=== PATIENT | male | born 1955 | race Caucasian/White ===

== ENCOUNTER 2018-06-28 10:00 | Outpatient (CLI) | payer BC ==
[~2018-06-28] VITALS: Ht 177.8 cm; Wt 122.7 kg
--- NOTE | ~2018-06-28 | HEMODYNAMI ---
PATIENT:ROBERTA KILGORE JR MEDICAL RECORD: [id number] : 59 LOCATION:D.CAT ADMISSION DATE: 06/28/18 Generatedon:06/28/201812:27 Patient name: ROBERTA KILGORE Patient #: [id number] SSN: DO B: 1955 Date of study: 06/28/2018 Page: Of Hemodynamic Procedure Report Patient Data Patient Demographics Procedure consent was obtained First Name: ROBERTA Gender: Male Last Name: MAGUI Suffix: Patient #: [id number] : 1955 Age: 62 year(s) Accession #: Race: Unknown [id number] Additional ID: [id number] Contact details [address]: [address] [place] [address] [place] State: [place] City: [place] Zip code: [address] Admission Admission Data Admission Date: 06/28/2018 Admission Time: 10:00 Procedure Procedure Types Cath Procedure Diagnostic Procedure Cardioversion External Procedure Description Procedure Date Procedure Date: 06/28/2018 Procedure Start Time: 12:20 Procedure End Time: 12:27 Procedure Staff Name Function Mahesh Brock MD Performing Physician Stuart Mazariegos MD Additional personnel Te Bell RT Monitor Tala Covington RT Monitor Sara Serrano RN Nurse Procedure Data Cath Procedure Fluoroscopy Diagnostic fluoroscopy Total fluoroscopy Time: 0 time: 0 min min Diagnostic fluoroscopy Total fluoroscopy dose: 0 dose: 0 mGy mGy Contrast Material Contrast Material Type Amount (ml) Isovue 300 0 Estimated blood loss: 0 ml Procedure Complications No complications Procedure Medications Medication Administration Route Dosage Oxygen etCO2 Nasal cannula 2 l/min Refer to Anesthesia Notes for Sedation Medications Hemodynamics Rest Heart Rate: 120 (bpm) Snapshots Pre Cath Intra NCS Post Cath Vital Signs Time Heart Resp SPO2 etCO2 NIBP (mmHg) Rhythm Pain Sedation Rate (ipm) (%) (mmHg) Status Level (bpm) 12:09:55 109 14 98 0 128/111(125) A-Fib 0 (11) 10(A) , No pain 12:14:19 98 14 98 0 128/105(125) A-Fib 0 (11) 10(A) , No pain 12:18:41 120 14 98 0 125/98(118) A-Fib 0 (11) 10(A) , No pain 12:22:37 66 15 97 0 105/79(89) NSR 0 (11) 9(A) , No pain 12:26:26 71 12 95 0 118/65(87) NSR 0 (11) 10(A) , No pain Medications Time Medication Route Dose Verified Delivered Reason Notes Effective ness by by 12:18:41 Oxygen etCO2 2 Mahesh Ruiz used for Nasal l/min Delmy Serrano machine quilt stuffer cannula 12:18:45 Refer to Mahesh Ruiz Anesthesia Delmy Serrano RN Notes for Sedation Medications Procedure Log Time Note 11:55:52 Tala Covington RT(R) sent for patient. Start room use. 12:04:11 Time tracking: Regular hours (M-F 7:00 - 5:00) 12:04:15 Plan of Care:Hemodynamics will remain stable., Cardiac rhythm will remain stable., Comfort level will be maintained., Respiratory function will remain adequate., Patient/ family verbilizes understanding of procedure., Procedure tolerated without complication., Recovers from procedure without complications.. 12:04:28 Patient arrived from Pre/Post Procedure Room to [facility]. Patient remains on bed/stretcher for procedure. 12:04:29 Warm blankets applied, and justin hugger turned on for patient comfort. 12:04:30 Correct patient and procedure confirmed by team. 12:04:31 Signed procedure consent form obtained from patient. 12:06:04 ECG and BP/O2 sat monitors applied to patient. 12:08:35 Vital chart was started 12:10:03 Baseline sample Acquired. 12:10:11 Rhythm: atrial fibrillation 12:10:12 Full Disclosure recording started 12:10:23 H&P Date Dictated: 06/15/2018 Within 30 days and on chart., H&P Addendum completed by physician on day of procedure. (MUST COMPLETE FOR ALL OUTPATIENTS). 12:10:23 Pre-procedure instructions explained to patient. 12:10:24 Pre-op teaching completed and patient verbalized understanding. 12:10:26 Family in waiting room. 12:10:27 Patient NPO since Midnight. 12:10:29 Is the patient allergic to Iodine/contrast media? No. 12:10:31 Is patient on blood thinner?Yes 12:10:35 ACC The patient was administered the following blood thiners within the last 24 hours: Xarelto 12:10:37 Patient diabetic? No. 12:10:45 Previous problem with sedation/anesthesia? No ? 12:10:46 Snore? Yes 12:10:47 Sleep apnea? Yes 12:10:48 Deviated septum? No 12:10:49 Opens mouth fully? Yes 12:10:51 Sticks out tongue? Yes 12:10:54 Airway obstruction? No ? 12:10:57 Dentures? No ? 12:11:00 Lab results completed and on chart. 12:11:04 Alarms reviewed by R. N. 12:11:30 Stuart Mazariegos MD present and monitoring patient for TIVA. 12:11:33 Quick combo pads placed on patients chest and back. 12:11:40 Quick Combo opened to sterile field. 12:12:01 IV patent on arrival in left forearm with 0.9% NaCl at KVO. 12:15:22 Physician paged 12:18:40 --------ALL STOP TIME OUT------ 12:18:41 Oxygen 2 l/min etCO2 Nasal cannula was administered by Sara Serrano RN; used for procedure; 12:18:41 Final Timeout: patient, procedure, and site verified with staff and physician. All members of the team are in agreement. 12:18:45 Refer to Anesthesia Notes for Sedation Medications was administered by Sara Serrano RN; ; 12:18:53 Fire Safety Assessment: C--Open oxygen or nitrous oxide is being used. 12:18:57 Physical assessment completed. ASA score P 2 - A patient with mild systemic disease as per Mahesh Brock MD. 12:18:59 Sedation plan: IV Moderate Sedation Medication:Versed, Fentanyl 12:20:05 Procedure started. 12:20:23 Defibrillator synced and charged to 275 Joules. 12:20:24 Shock delivered. 12:20:30 Patient cardioverted to sinus bradycardia. 12:21:00 Procedure ended.(Physican Out) 12:21:04 Fluoroscopy time 00.00 minutes. 12:21:05 Fluoroscopy dose: 0 mGy 12:21:05 Flurop Dose total: 0 12:21:07 Contrast amount:Isovue 300 0ml. 12:21:08 Sharps counted by scrub and verified by R.N. 12:21:15 Post-procedure physical assessment completed. ASA score P 2 - A patient with mild systemic disease as per Mahesh Brock MD. 12:21:18 Post procedure rhythm: sinus rhythm 12:21:23 Estimated blood loss: 0 ml 12:25:03 Post procedure instruction explained to patient.Patient verbalizes understanding. 12:25:04 Patient needs reinforcement of post procedure teaching. 12:25:05 Procedure and supply charges have been captured, reviewed, submitted and are correct. 12:25:08 Procedure Complication : No complications 12:27:03 Vital chart was stopped 12:27:03 See physician's report for complete and final results. 12::05 Report given to Pre/Post Procedure Room. 12:27:08 Patient transfered to Pre/Post Procedure Room with Stretcher. 12:27:10 Procedure ended. 12:27:10 Full Disclosure recording stopped 12:27:16 End room use (Document Last) Device Usage Item Manufacture Quantity Catalog Hospital Part Current Minimal Lot# / Name Number Charge Number Stock Stock Marki al# Code [employer] 1 [id number] Combo Signature Audit [place] Stage Time Signature Unsigned Intra-Procedure 06/28/2018 Te Bell 12:27:43 PM RT(R) Signatures Monitor : Te Bell RT Signature : Date : Time : Monitor : Tala Covington Signature : RT Date : Time : [facility] [address] [facility] [place] [address]
[2018-06-28] MEDS ORDERED: XARELTO10 MG PO (10:16)
[2018-06-28] MEDS ORDERED: PROPAFENONE HC150 MG PO (10:16)
[2018-06-28] MEDS ORDERED: LIPITOR20 MG PO (10:16)
[2018-06-28] MEDS ORDERED: BENICAR40 MG PO (10:16)
[2018-06-28 10:41] VITALS: BP 118/81; Ht 177.8 cm; Wt 122.7 kg
[2018-06-28 10:50] LABS: BASOPHILS 0.8 % (0-2); EOSINOPHILS 2.4 % (0-7); HEMATOCRIT 46.3 % (42.0-54.0); IMMATURE GRANULOCYTES 0.1 % (0-5); MCH 31.1 pg (26.0-34.0); MCHC 34.6 g/dL (31.0-37.0); MCV 89.9 fL (80.0-100.0); MEAN PLATELET VOLUME 9.9 fL (7.4-10.4); MONOCYTES 8.7 % (2-11); PLATELET COUNT 259 10x3/uL (130-400); RBC 5.15 10x6/uL (4.20-6.10); WBC 8.4 10x3/uL (4.8-10.8)
[2018-06-28 11:02] LABS: CALC OSMOLALITY 282 mosm/kg (275-300); CALCIUM 8.5 mg/dL (8.5-10.1); CARBON DIOXIDE 21.5 mmol/L (21.0-32.0); CHLORIDE - SERUM 106 mmol/L (98-107); CREATININE - SERUM 0.9 mg/dL (0.6-1.3); GLUCOSE 140 mg/dL (74-106); POTASSIUM - SERUM 4.2 mmol/L (3.5-5.1); SODIUM 140 mmol/L (136-145); UREA NITROGEN 19 mg/dL (7-18); eGFR NON AFRICAN AMERICAN > 90 mL/min (90-120)
[2018-06-28 11:03] LABS: INR 1.3 (0.85-1.17); PROTIME 15.7 SECONDS (11.6-15.0)
--- NOTE | 2018-06-28 12:30 | NUR ---
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 HR NSR RATE 66, BP 109/60, O2 SAT 98 ON 2L/NC. PT DENIES CHEST PAIN OR NAUSEA. WATER GIVEN PER REQUEST. CALL LIGHT IN REACH AND FAMILY AT BEDSIDE.
--- NOTE | 2018-06-28 12:45 | NUR ---
PT SITTING UP IN BED VISITING W FAMILY, HR REMAINS IN SR RATE OF 64. DENIES PAIN OR NEEDS. CALL LIGHT IN REACH.
--- NOTE | 2018-06-28 13:15 | NUR ---
PT SITTING UP DENIES ANY CHEST DISCOMFORT OR OTHER NEEDS. IV REMOVED AND MONITORS REMOVED FOR DISCHARGE PER Genie YEUNG RN. HR REMAINS IN NSR RATE 62.
--- NOTE | 2018-06-28 13:30 | NUR ---
DISCHARGE INSTRUCTIONS REVIEWED W PT AND , BOTH VERBALIZED UNDERSTANDING. PT DISCHARGED TO PRIVATE VEHICLE VIA WC
--- NOTE | 2018-06-29 11:20 | OP ---
PATIENT NAME: ROBERTA KILGORE JR MEDICAL RECORD: [id number] :59 LOCATION:D.CAT ADMISSION DATE: SURGEON: DANETTE GALEANA MD DATE OF OPERATION: 06/28/2018 PROCEDURE: DC cardioversion. INDICATION: Atrial fibrillation. PROCEDURE IN DETAIL: IV conscious sedation was per anesthesia. Continuous heart rate, O2 saturation, blood pressure monitoring all undertaken, all of which remains stable. He received 1 shock at 275 joules restoring sinus rhythm. OVERALL IMPRESSION: Successful DC cardioversion from atrial fibrillation to sinus rhythm. TRANSINT:[id number] Voice Confirmation ID: [id number] DOCUMENT ID: [id number] DANETTE GALEANA MD at 1120 CC: [id number] DICTATION DATE: 06/28/18 1226 FLOOR SURFACER: 06/28/18 1238 DEP CLI 06/28/[address] [id number]
== END 2018-06-28 13:35 | disposition home or self-care (01) ==
LOC: D.CATH 10:00
PROVIDERS: Internal Medicine Interventional Cardiology
DX: I48.91 Unspecified atrial fibrillation (principal); Z01.812 Encounter for preprocedural laboratory examination

== ENCOUNTER 2019-10-06 14:20 | Inpatient (IN) | payer BC ==
[~2019-10-06] VITALS: Ht 177.8 cm; Wt 122.5 kg
[~2019-10-06 14:20] MED LIST: BENICAR40 MG PO; LIPITOR20 MG PO; PROPAFENONE HC150 MG PO; XARELTO10 MG PO
[2019-10-06] MEDS ORDERED: BAYER CHEWABLE81 MG (14:34)
[2019-10-06] MEDS ORDERED: ELIQUIS5 MG (14:34)
[2019-10-06] MEDS ORDERED: TOPROL XL25 MG (14:35)
[2019-10-06] MEDS ORDERED: CYMBALTA60 MG (14:36)
[2019-10-06] MEDS ORDERED: MULTAQ400 MG (14:36)
[2019-10-06] MEDS ORDERED: CANDESARTAN (14:39)
[2019-10-06 14:44] LABS: BILIRUBIN NEGATIVE (NEGATIVE); GLUCOSE NEGATIVE (NEGATIVE); KETONE NEGATIVE (NEGATIVE); NITRITE NEGATIVE (NEGATIVE); SPECIFIC GRAVITY 1.025 (1.005-1.020); UROBILINOGEN NORMAL (NORMAL)
[2019-10-06 14:46] LABS: BACTERIA FEW /hpf (NEGATIVE); EPITHELIAL CELLS OCC /hpf (0-5); RED CELLS - URINE OCC /hpf (0-5); WHITE CELLS - URINE 0-5 /hpf (NEGATIVE)
[2019-10-06 14:48] LABS: BASOPHILS 0.1 % (0-2); EOSINOPHILS 0.2 % (0-7); HEMATOCRIT 47.9 % (42.0-54.0); HEMOGLOBIN 15.8 g/dL (13.5-17.5); IMMATURE GRANULOCYTES 0.8 % (0-5); LYMPHOCYTES 2.7 % (15-50); MCH 31.2 pg (26.0-34.0); MCV 94.5 fL (80.0-100.0); MEAN PLATELET VOLUME 9.7 fL (7.4-10.4); MONOCYTES 2.8 % (2-11); NEUTROPHILS 93.4 % (40-80); RBC 5.07 10x6/uL (4.20-6.10); RDW 14.3 % (11.5-14.5); WBC 18.3 10x3/uL (4.8-10.8)
[2019-10-06 14:49] LABS: PLATELET COUNT 324 10x3/uL (130-400)
[2019-10-06 15:05] LABS: CALC OSMOLALITY 290 mosm/kg (275-300); CARBON DIOXIDE 22.7 mmol/L (21.0-32.0); CHLORIDE - SERUM 106 mmol/L (98-107); CREATININE - SERUM 1.3 mg/dL (0.6-1.3); GLUCOSE 180 mg/dL (74-106); POTASSIUM - SERUM 4.3 mmol/L (3.5-5.1); SODIUM 141 mmol/L (136-145); UREA NITROGEN 27 mg/dL (7-18); eGFR NON AFRICAN AMERICAN 60 mL/min (90-120)
[2019-10-06 15:14] LABS: ALBUMIN 4.2 g/dL (3.4-5.0); ALKALINE PHOSPHATASE 57 U/L (30-120); ALT (SGPT) 50 U/L (10-68); AMYLASE - SERUM 50 U/L (25-115); BILIRUBIN - TOTAL 1.32 mg/dL (0.2-1.3); LIPASE 92 U/L (73-393); PROTEIN - SERUM 7.5 g/dL (6.4-8.2)
[2019-10-06 15:28] LABS: TROPONIN-I < 0.017 ng/mL (0.000-0.060)
--- NOTE | 2019-10-06 17:41 | NUR ---
DR. AC AT BEDSIDE FOR PATIENT EVAL.
--- NOTE | 2019-10-06 17:58 | NUR ---
EKG COMPLETED AND PLACED ON CHART PER HOSPICE AIDE REQUEST, ALSO BAG OF N/S KVO RATE INFUSING ON TRANSFER TO OR
--- NOTE | 2019-10-06 20:06 | NUR ---
PT ARRIVED FROM PACU IN BED A&OX4 IN STABLE CONDITION. VITAL SIGNS ARE STABLE. BACON CATHETOR OBSERVED BELOW BLADDER AND DRAINING. HE HAS RIGHT HAND IV THAT HAS NO S/S OF INFILTRATION. ABD DRESSINGS ARE CDI C NO S/S OF BLEEDING. 2 ADDY DRAINS NOTED AND DRAINING. WLL PERFORM FULL ASSESSMENT, HX, AND MED RX AND DOCUMENT IN FLOW SHEETS. BED IS LOW,SIDE RAILSX2,CALL LIGHT WITHIN REACH. WILL CONINTUE TO MONITOR
[2019-10-06] MEDS ORDERED: CYMBALTA60 MG PO (20:43)
[2019-10-06 21:11] VITALS: BP 116/73; BMI 38.8
[2019-10-06 22:00] VITALS: BP 116/66
--- NOTE | 2019-10-06 22:14 | NUR ---
PT IS RESTING IN BED WITH EYES CLOSED SNORING. VSS. BED IS LOW,SIDE RAILSX2,CALL LIGHT WIHTIN REACH. WILL CONINTUE TO MONITOR
[2019-10-06 23:00] VITALS: BP 117/63
--- NOTE | 2019-10-06 23:32 | NUR ---
PT IS RESTING IN BED WITH EYES CLOSED SNORING. VSS. BED IS LOW,SIDE RAISLX2,CALL LIGHT WTIHIN REACH. WILL CONITNUE TO MONITOR
[2019-10-07] VITALS (24 sets, daily range): BP systolic 102–149; BP diastolic 44–91
--- NOTE | 2019-10-07 01:27 | NUR ---
PT IS RESTING IN BED AWAKES EASILY. HE VOICES"IM DOING GOOD". VSS. NO REQUEST OR NEEDS AT THIS TIME. BED IS LOW,SIDE RAILSX2,CALL LIGHT WITHIN REACH. WILL CONTINUE TO MONITO R
--- NOTE | 2019-10-07 03:10 | NUR ---
PT IS RESTING IN BED WITH EYES CLOSED. VSS. DOING RE-ASSESSMENT AT THIS TIME. PT PUSHED MILLER HEAD WET PROCESS WHEN I WAS IN ROOM. NO NEEDS OR CONCERNS VOICED. PT HAS LEMON GLYCERIN SWABS AT BEDSIDE TO MOISTEN MOUTH. HE VOICES"ITS BETTER THAN NOTHING". BED IS LOW,SIDE RAISLX2,CALL LIGHT WITHIN REACH. WILL CONITNUE TO MONITOR
[2019-10-07 03:41] LABS: INR 1.38 (0.85-1.17); PROTIME 16.9 SECONDS (11.6-15.0)
[2019-10-07 03:42] LABS: APTT 37.2 SECONDS (22.8-39.4); BASOPHILS 0.1 % (0-2); EOSINOPHILS 0.1 % (0-7); HEMATOCRIT 43.8 % (42.0-54.0); HEMOGLOBIN 14.2 g/dL (13.5-17.5); IMMATURE GRANULOCYTES 0.4 % (0-5); LYMPHOCYTES 5.3 % (15-50); MCH 31.3 pg (26.0-34.0); MCHC 32.4 g/dL (31.0-37.0); MONOCYTES 4.4 % (2-11); NEUTROPHILS 89.7 % (40-80); PLATELET COUNT 300 10x3/uL (130-400); RBC 4.53 10x6/uL (4.20-6.10); RDW 14.6 % (11.5-14.5); WBC 19.6 10x3/uL (4.8-10.8)
[2019-10-07 03:43] LABS: MCV 96.7 fL (80.0-100.0)
[2019-10-07 04:08] LABS: ALBUMIN 3.3 g/dL (3.4-5.0); ALKALINE PHOSPHATASE 44 U/L (30-120); BILIRUBIN - TOTAL 1.19 mg/dL (0.2-1.3); CALC OSMOLALITY 286 mosm/kg (275-300); CALCIUM 7.7 mg/dL (8.5-10.1); CARBON DIOXIDE 23.7 mmol/L (21.0-32.0); CHLORIDE - SERUM 109 mmol/L (98-107); CKMB 0.6 U/L (0.0-3.6); CREATINE KINASE 51 UL (21-232); CREATININE - SERUM 1.1 mg/dL (0.6-1.3); GLUCOSE 141 mg/dL (74-106); MAGNESIUM - SERUM 1.6 mg/dL (1.8-2.4); PHOSPHOROUS 3.4 mg/dL (2.5-4.9); POTASSIUM - SERUM 4.6 mmol/L (3.5-5.1); PROTEIN - SERUM 6.5 g/dL (6.4-8.2); SODIUM 141 mmol/L (136-145); UREA NITROGEN 25 mg/dL (7-18); eGFR NON AFRICAN AMERICAN 72 mL/min (90-120)
[2019-10-07 04:12] LABS: ALT (SGPT) 30 U/L (10-68); TROPONIN-I < 0.017 ng/mL (0.000-0.060)
--- NOTE | 2019-10-07 06:00 | NUR ---
PT IS RESTING IN BED WITH EYES CLOSED SNORING. VSS. BED IS LOW,SIDE RAILSX2,CALL LIGHT WITHIN REACH. WILL CONINTUE TO [facility]
--- NOTE | 2019-10-07 08:00 | NUR ---
AWAKE AND ALERT SKIN WARM AND DRY. AT BEDSIDE. DENIES PAIN STATES DILAUDID COAL PIPELINE OPERATOR EFFECTIVE. ABD DRESSINGS DRY AND INTACT. ADDY DRAINS X 2 BULB COMPRESSED WITH SERSANG DRAINAGE. BACON CATH PATENT DRAINING CLEAR JEF URINE. IV RIGHT HAND INFUSING WITH NS AT 125 ML HOUR. NO SWELLING OR REDNESS NOTED. MONITOR SR. INCENTIVE SPIROMETRY INSTRUCTIONS GIVEN WITH RETURN DEMONSTRATION TO 3500 ML. NO DISTRESS. SPLINTING ABD WITH PILLOW WITH DEEP BREATHS.
--- NOTE | 2019-10-07 10:00 | NUR ---
ORAL CARE DONE. COMPLETE BED BATH WITH HIBCLENS GIVEN. PATIENT TURNING SELF FROM SIDE TO SIDE. ABD DRESSING DRY AND INTACT. ADDY DRAINS WITH SERSANG DRAINAGE SMALL AMOUNT. MONITOR SR. DENIES PAIN. SCD ON LOWER LEGS.
--- NOTE | 2019-10-07 12:00 | NUR ---
NO CHANGE DRESSING DRY AND INTACT. ADDY DRAINS INTACT WITH BULB COMPRESSED. STATES HE IS TURNING SELF FROM SIDE TO SIDE. NO DISTRESS
--- NOTE | 2019-10-07 14:00 | NUR ---
NO CHANGE. ENCOURAGE TO USE INCENTIVE SPIROMETRY. ABD DRESSING DRY AND INTACT. CLOUDY YELLOW DRAINAGE IN ADDY DRAINS. MONITOR SR
--- NOTE | 2019-10-07 15:30 | NUR ---
DR. AC HERE TALKED WITH PATIENT. ORDERS TO GET PATIENT OUT OF BED. AND PATIENT MAY HAVE ICE CHIPS ONLY. ABD DRESSING DRY AND INTACT
--- NOTE | 2019-10-07 16:15 | NUR ---
UP IN CHAIR AT BEDSIDE. TOLERATED WELL. ICE CHIPS PROVIDED. PATIENT WITH GOOD GAIT. DENIES ANY DIZZYNESS OR LIGHT HEADED. TOLERATED WELL.
--- NOTE | 2019-10-07 18:00 | NUR ---
TOLERATING UP IN CHAIR WELL. AT BEDSIDE. ANNUAL GREENHOUSE MANAGER DILAUDID EFFECTIVE WITH PAIN RELIEF
--- NOTE | 2019-10-07 19:00 | NUR ---
PT IS SITTING UP IN BED A&OX4, VSS. BACON CATHETOR OBSERVED AND DRAINING. DURING FULL-ASSESSMNET HE HAD SMALL AMOUNT OF SEROSANGANOUS FLUID ON ADDY DRESSING. CHANGED AT THIS TIME. SITE LOOK FREE OF INFECTION OR BLEEDING. HE CAN NOW HAVE ICE CHIPS PER DR AND HAS AT BEDSIDE. BED IS LOW,SIDE RAILSX2,CALL LIGHT WITHIN REACH. WILL CONINUE TO MONITOR
--- NOTE | 2019-10-07 20:28 | NUR ---
STAND BY ASSIST PT TO BEDSIDE CAMMODE. HE VOICED"I THOUGH I MIGHT NEED TO GO" BUT HE ONLY PASSED GAS BY BURPING. BACK TO BED SAFELY. VSS. HE USES MOTION PICTURE CRITIC BUTTON HIMSELF. IS AT BEDSIDE VISITING. NO NEEDS OR CONCERNS VOICED. BED IS LOW,SIDE RAISLX2,CALL LIGHT WITHIN REACH. WILL CONITNUE TO MONITOR
--- NOTE | 2019-10-07 23:32 | NUR ---
PT IS RESTING IN BED. HE IS BURPING UP AIR. VSS. NO COMPLAINTS OR NEEDS VOICED. BED IS LOW,SIDE RAISLX2,ALL LIGHT WITHIN REACH. WILL CONINTUE TO MONITOR
[2019-10-08] VITALS (22 sets, daily range): BP systolic 137–173; BP diastolic 33–98
--- NOTE | 2019-10-08 00:40 | NUR ---
HEARD PT MAKING SOUNDS FROM ROOM. WHEN CHECKING ON HIM HE WAS VOMITING AND MAKING RETCHING SOUNDS. VOMIT WAS SMALL AMOUNT DARK AND THICK. VSS. SCANNED AND ADMINISTERED ZOFRAN 4MG IV FOR N/V ORDERE PRN. WITHIN A FEW MINUTES PT VOICED"I FEEL BETTER NOW". I ENCOURAGED HIM TO NOT TAKE ANY ICE CHIPS FOR ABOUT 4 HOURS TO LET HIS STOMACH SETTLE AND WHEN WE STARTS BACK TO START SLOW. HE VOCALIZED UNDERSTANDING. BED LOW,SIDE RAISLX2,CALL LIGHT WITHNI REACH. WILL CONITNUE TO MONITOR
--- NOTE | 2019-10-08 02:45 | NUR ---
HEARD PT FROM ROOM. HE IS ONCE AGAIN VOMITING A SMALL AMOUNT OF DARK BROWN VOMIT. PROVIDED WITH COOL RAG. HIS VS ARE STABLE. TEMP98.1F. BS HYPOACTIVE X4, BELLY IS STILL DISTENDED AND TIGHT, WHICH IS NO CHANGE FROM PREVIOUS ASSESSMENT. I ONCE AGAIN INSISTED TO NOT TAKE IN ANY ICE CHIPS, WHICH HE VOICED"I HAVNT, AND OK". HE SEEMS TO FEEL BETTER AFTER VOMMITING AND DOES NOT CONTINUE TO RETCH. I WILL CONITNUE TO MONITOR THIS
--- NOTE | 2019-10-08 03:00 | NUR ---
TALKED WITH ON THE PHONE TO UPDATE ABOUT PT N/V. GAVE T.O TO START ZOFRAN DRIP AND TO DROP A NG TUBE AND PUT ON LOW-INTERMITTEN SUCTION AND TO BE STRICK NPO, NO ICE CHIPS. T.O READ BACK CORRECT.
[2019-10-08 03:46] LABS: BASOPHILS 0.1 % (0-2); EOSINOPHILS 0.1 % (0-7); HEMATOCRIT 43.8 % (42.0-54.0); HEMOGLOBIN 13.9 g/dL (13.5-17.5); IMMATURE GRANULOCYTES 0.6 % (0-5); LYMPHOCYTES 4.3 % (15-50); MCHC 31.7 g/dL (31.0-37.0); MCV 97.8 fL (80.0-100.0); MEAN PLATELET VOLUME 9.9 fL (7.4-10.4); MONOCYTES 3.6 % (2-11); NEUTROPHILS 91.3 % (40-80); PLATELET COUNT 285 10x3/uL (130-400); RBC 4.48 10x6/uL (4.20-6.10); WBC 16.2 10x3/uL (4.8-10.8)
--- NOTE | 2019-10-08 03:49 | NUR ---
JUST PLACED NG TUBE DOWN RIGHT NARE AND INSERTED 20ML OF AIR AND HEARD OVER GASTRIC REGION. PT TOLERATED WELL. SECURED TO NOSE AND HOOKED UP TO LOW-INTERMITTEN SUCTION. GREENISH BROWN EMESIS IS COMIGN OUT OF TUBE. VSS. PT PUSHED IT RISK AND ASSURANCE SENIOR MANAGER BUTTON. BED IS LOW,SIDE RAISLX2,CALL LIGHT WITHIN REACH. WILL CONITNUE TO MONTIOR
[2019-10-08 03:59] LABS: ALBUMIN 3.2 g/dL (3.4-5.0); ALKALINE PHOSPHATASE 54 U/L (30-120); ALT (SGPT) 27 U/L (10-68); BILIRUBIN - TOTAL 0.82 mg/dL (0.2-1.3); CALC OSMOLALITY 283 mosm/kg (275-300); CALCIUM 8.2 mg/dL (8.5-10.1); CHLORIDE - SERUM 108 mmol/L (98-107); GLUCOSE 160 mg/dL (74-106); POTASSIUM - SERUM 4.4 mmol/L (3.5-5.1); PROTEIN - SERUM 7.4 g/dL (6.4-8.2); SODIUM 140 mmol/L (136-145); eGFR NON AFRICAN AMERICAN 81 mL/min (90-120)
[2019-10-08 04:01] LABS: PHOSPHOROUS 2.1 mg/dL (2.5-4.9); UREA NITROGEN 18 mg/dL (7-18)
--- NOTE | 2019-10-08 05:38 | NUR ---
PT IS RESTING IN BED WITH EYES CLOSED SNORING. VSS. BED IS LOW,SIDE RAISLX2,[facility]. WILL CONITNUE TO [facility]
--- NOTE | 2019-10-08 10:22 | NUR ---
0700 BEDSIDE REPORT IN BED AWAKE ASSESSMENT COMPLETE
--- NOTE | 2019-10-08 10:23 | NUR ---
0900 RIGHT NARE NGT PLACEMENT VERIFIED WITH AIR BOLUS AND LOW INTERMITTANT WALL SUCTION THIN DARK LIQUID UPON RETURN PATIENT ON ZOFRAN INFUSION FOR NAUSEA
--- NOTE | 2019-10-08 10:36 | NUR ---
0901 PHARMACY ARRIVED WITH SODIUM PHOSPHATE 15 MM FOR SERUM P04 OF 2.1
--- NOTE | 2019-10-08 10:55 | NUR ---
1000 DR HODGE LETTERPRESS SETTER IN IRRIGATION EQUIPMENT INSTALLER AT THIS TIME WILL ROUND IN ICU AFTERWARDS
--- NOTE | 2019-10-08 11:07 | NUR ---
1420 DR HODGE AT BEDSIDE. WENT TO GET TO SPEAK WITH CARDIOLOGY. DR PIEDRA UPDATED ON PATIENT AND ALLOWED HER TO ASK QUESTIONS STARTED AMIODARONE GTT
--- NOTE | 2019-10-08 11:10 | NUR ---
4157 STATED SHE HAD CALLED PATIENTS DIESEL DINKEY ENGINEER IN [place] [facility]ING [facility]
--- NOTE | 2019-10-08 11:11 | NUR ---
1100 RESTING QUIETLY WITH EYES CLOSED STATED HE HAS SMALL HEADACHE COOL WET CLOOTHS PLACED OVER HIS FORHEAD PT STATED THAT 'FEELS GOOD'
--- NOTE | 2019-10-08 11:53 | NUR ---
1153 RIGHT ADDY INSERTION SITE LEAKING SEROUS FLUID REINFORCED SURGICAL DRESSING WITH 4X4 EARNEST AND MEDIPORE TAPE STRIPPED ADDY TUBING X 2 BOTH DRAINING SEROUS FLUID TO COMPRESSED BULBS
--- NOTE | 2019-10-08 11:57 | NUR ---
1150 PATIENT STATES ALL THE PAIN IS GONE DENIES FLATUS FAINT BOWEL SOUNDS NOTED BOTH LOWER QUADS
--- NOTE | 2019-10-08 12:52 | NUR ---
6578 DR DREW AT BEDSIDE PROVIDING UPDATE TO PATIENT AND MD ALLOWED SPOUSE TO ASK QUESTIONS ALL QUESTIONS WERE ANSWERED BY THE MD
--- NOTE | 2019-10-08 19:05 | NUR ---
PT IS RESTING IN BED WITH EYES CLOSED. AWAKES EASILY AND IS A&OX4. HIS VSS. BACON OBSERVED DRAINING AND SECURED TO LEG. NG TUBE IS HOOK TO LOW-INTERMITTEN SUCTION AND IS PULLING LIGHT SCREEN EMESIS OUT. PT HAS HOUSE FURNISHINGS SUPERVISOR PUMP BY HIS SIDE AND VOICES "IT CONTROLS MY PAIN PRETTY GOOD". HE MOVES HIMSELF INDEPENDENTLY. WILL PERFORM FULL ASSESSMENT AND DOC IN FLOW SHEET. BED IS LOW,SIDE RAISLX,2CALL CALL LIGHT WITHIN REACH. WILL CONITNUE TO MONITO R
--- NOTE | 2019-10-08 20:22 | NUR ---
PT IS RESTING IN BED WITH EYES CLOSED. VSS. AWAKES EAISLY. HE VOICES"NO" TO ANY PAIN RIGHT NOW AND VOICES"I HAVENT HAD TO USE MY BUTTON MUCH". JUST ADMINSITERED SCHEDULED MED. BS IS 125, SO NO COVERAGE NEEDED. NO NEEDS OR CONCERNS VOICED. BED IS LOW,SIDE RAISLX2,CALL LIGHT WITHIN REACH. WILL CONINTUE TO [facility]
--- NOTE | 2019-10-08 22:14 | NUR ---
PT IS RESTING IN BED WITH EYES CLOSED. AUCTIONEER ART PUMP WAS BEEPING THAT IT WAS EMPTY. PUT NEW SYRING IN AUCTIONEER ART AND DOCUMENTED ON MAR AND AUCTIONEER ART FLOWSHEET. PT VOICES NO NEEDS OR CONCERNS. VSS.
--- NOTE | 2019-10-08 23:20 | NUR ---
PT IS RESTING IN BED WITH EYES CLOSED. WILL PERFORM RE-ASSESSMENT AND DOC IN FLOW SHEET. VSS. BED IS LOW,SIDE RAILSX2,CALL LIGHT WITHIN REACH. WILL CONITNUE TO MONITOR
[2019-10-09] VITALS (24 sets, daily range): BP systolic 138–169; BP diastolic 69–120; Ht 177.8 cm; Wt 122.5 kg
--- NOTE | 2019-10-09 02:10 | NUR ---
PT IS RESTING IN BED WITH EYES CLOSED. VSS. BED IS LOW,SIDE RAISLX2,CALL LIGHT WITHIN REACH. WILL CONTINUE TO MONITOR
[2019-10-09 03:47] LABS: BASOPHILS 0.1 % (0-2); EOSINOPHILS 0.2 % (0-7); HEMATOCRIT 44.2 % (42.0-54.0); HEMOGLOBIN 14.3 g/dL (13.5-17.5); IMMATURE GRANULOCYTES 0.3 % (0-5); LYMPHOCYTES 6.3 % (15-50); MCH 31.3 pg (26.0-34.0); MCHC 32.4 g/dL (31.0-37.0); MCV 96.7 fL (80.0-100.0); MEAN PLATELET VOLUME 9.9 fL (7.4-10.4); NEUTROPHILS 88.1 % (40-80); PLATELET COUNT 290 10x3/uL (130-400); RBC 4.57 10x6/uL (4.20-6.10); RDW 14.7 % (11.5-14.5); WBC 15.3 10x3/uL (4.8-10.8)
[2019-10-09 04:03] LABS: ALBUMIN 2.8 g/dL (3.4-5.0); ANION GAP 11.4 mmol/L (8-16); BILIRUBIN - TOTAL 0.68 mg/dL (0.2-1.3); CALCIUM 8.4 mg/dL (8.5-10.1); CARBON DIOXIDE 25.5 mmol/L (21.0-32.0); CREATININE - SERUM 1.1 mg/dL (0.6-1.3); POTASSIUM - SERUM 3.9 mmol/L (3.5-5.1); PROTEIN - SERUM 6.3 g/dL (6.4-8.2)
[2019-10-09 04:04] LABS: PHOSPHOROUS 1.5 mg/dL (2.5-4.9)
--- NOTE | 2019-10-09 04:57 | NUR ---
PT IS RESTING IN BED WITH EYES CLOSED. AWAKES EASILY. VOICES"IM DOING ALRIGHT". NO C/O VOICED. VSS. BED IS LOW, SIDE RAISLX2,CALL LIGHT WITHIN REACH. WILL CONITNUE TO MONITOR
--- NOTE | 2019-10-09 06:00 | NUR ---
JUST ASSITED SETTING UP FOR PT TO BRUSH HIS OWN TEETH AND SUPPLIED HIM WITH A SHOWER SHAMPOO CAP SO HE COULD WASH HIS HAIR. HE ALSO WASHED HIS BODY HIMSELF ONCE I SET UP ALL STUFF ON BEDSIDE TABLE. PT VOICED AFTER"MAN I FEEL SO MUCH BETTER". HE VOICES NO NEEDS AT THIS TIME. VSS. HE REPOSITIONS HIMSELF. BED IS LOW,SIDE RAISLX2,CALL LIGHT WITHIN REACH. WILL CONINTUE TO MONITOR
--- NOTE | 2019-10-09 09:10 | EC ---
PATIENT:ROBERTA KILGORE JR DATE OF SERVICE: 10/06/19 SEX: M MEDICAL RECORD: [id number] DATE OF : [birth year] LOCATION:[place] [address] AGE OF PATIENT: 63 ADMISSION DATE: 10/06/19 REFERRING PHYSICIAN: INTERPRETING PHYSICIAN: KALEE HODGE MD ECHOCARDIOGRAM REPORT ECHO CHARGES 4 ECHO COMPLETE Date: 10/08/19 CLINICAL DIAGNOSIS: ATRIAL FIB ECHOCARDIOGRAPHIC MEASUREMENTS (adult normal given) AC root (d.<3.7cm) 3.3 cm LV Septum d (<1.2 cm> 1.3 cm Valve Excursion 2.0 cm LV Septum (systole) 1.8 cm Left Atria (s.<4.0cm> 4.1 cm LVPW d(<1.2cm) 1.4 cm RV (d.<2.3cm) 4.3 cm LVPW (sytole) 2.0 cm LV diastole(<5.6CM) 5.4 cm MV E-F(>70mm/sec) cm LV systole 3.8 cm LVOT Diameter 2.2 cm MV exc.(>10mm) 1.9 cm Est.ejection fraction (50-75%) % DOPPLER: LVIT cm/sec A 450 cm/sec E 84.0 cm/sec LA cm/sec RVSP 16 mmHg LVOT 109 cm/sec AOP1/2T m/s Asc. Ao 129 cm/sec RVOT 80 cm/sec RA cm/sec PA 106 cm/sec AV Gradient Peak 6.68 mmHg AV Mean 3.58 mmHg AV Area 3.0 cm MV Gradient Peak 7.45 mmHg MV Mean 2.57 mmHg MV Area cm COMMENTS: Flight Line Service Attendant: 2 HERMAN GRIFFITH Technical Artist: 4 Dr. Hodge TAPE# PACS Pericardial Effusion N DATE OF SERVICE: 10/08/2019 PROCEDURE: Echocardiogram. FINDINGS: 1. Left ventricle has mild left ventricular hypertrophy. Ejection fraction is 55% to 60%, there is no regional wall motion abnormalities. 2. Left atrium is mildly dilated. 3. Aortic valve is normal structure and function. 4. Mitral valve is normal. ECHOCARDIOGRAM REPORT [id number] ROBERTA KILGORE JR 5. Tricuspid valve is normal with normal pulmonary pressures. 6. Right ventricle is mildly enlarged. 7. Right atrium is mildly enlarged. 8. Pulmonic valve appears to be grossly normal. TRANSINT:[id number] Voice Confirmation ID: [id number] DOCUMENT ID: [id number] KALEE HODGE MD at 0910 CC: [id number] DICTATION DATE: 10/09/19804 BEEKEEPER: 10/09/19 0841 ADM IN [facility] [address] [place] [id number]
--- NOTE | 2019-10-09 09:13 | NUR ---
0700 BEDSIDE REPORT FROM JEF LAY OUT WORKER COMPLETE PT AWAKE ALERT VOICES NO COMPLAINTS AT THIS TIME USING THE DILAUDID PURCHASING MANAGER/SALES NEEDED
--- NOTE | 2019-10-09 09:15 | NUR ---
0800 PATIENT STATED HE HAS PASSED GAS AND WAS VERY HAPPY ABOUT IT
--- NOTE | 2019-10-09 09:16 | NUR ---
[address] TO RADIOLOGY FOR CT OF THE ABDOMIN
--- NOTE | 2019-10-09 10:02 | NUR ---
916 RETURNED TO ICU FROM RADIOLOGY TOLD SHE COULD COME BACK IN ROOM
--- NOTE | 2019-10-09 14:17 | NUR ---
1100 ASSISTED UP TO BSC PASSED FLATUS
--- NOTE | 2019-10-09 14:18 | NUR ---
1300 UP TO BSC NO BM NOTED ASSIST X 1 TO RECLINER CHAIR SAT IN CHAIR FOR 20 MINUTES BACK TO BSC NO BM ASSIST X 1 BACK TO BED
--- NOTE | 2019-10-09 19:00 | NUR ---
REPORT RECEIVED. PT RESTING IN BED, AAOX4. NO ACUTE DISTRESS NOTED AT THIS TIME. ADDY DRAINS X2 COMPRESSED, PIV IN RT HAND, SEE IV FLOWSHEET. ASSESSMENT COMPLETED, SEE FLOWSHEET. NGT TUBE IN PLACE, WILL CONTINUE TO MONITOR.
--- NOTE | 2019-10-09 19:07 | NUR ---
1500 FLATUS NOTED SEVERAL TIMES UPON MOVEMENT
--- NOTE | 2019-10-09 19:08 | NUR ---
1700 WATCHING TV WITH SPOUSE STATED 'PASSING GAS AGAIN'
--- NOTE | 2019-10-09 20:18 | NUR ---
PT PULLED NG TUBE OUT, CLAIMING HE "HAD A NIGHTMARE AND PULLED IT OUT." WILL REINSERT.
--- NOTE | 2019-10-09 21:00 | NUR ---
NG TUBE PLACED TO RT NARE AND SECURED. PIV INITIATED IN LEFT UPPER ARM, SEE IV FLOWSHEET.
--- NOTE | 2019-10-09 23:00 | NUR ---
REASSESSMENT COMPLETED, SEE FLOWSHEET.
[2019-10-10] VITALS (17 sets, daily range): BP systolic 132–165; BP diastolic 59–98
--- NOTE | 2019-10-10 01:00 | NUR ---
PT RESTING IN BED, NO ACUTE DISTRESS NOTED.
--- NOTE | 2019-10-10 03:00 | NUR ---
REASSESSMENT COMPLETED, SEE FLOWSHEET.
[2019-10-10 03:48] LABS: BASOPHILS 0.2 % (0-2); EOSINOPHILS 0.7 % (0-7); HEMATOCRIT 43.3 % (42.0-54.0); IMMATURE GRANULOCYTES 0.3 % (0-5); LYMPHOCYTES 10.2 % (15-50); MCHC 32.3 g/dL (31.0-37.0); MCV 95.8 fL (80.0-100.0); MEAN PLATELET VOLUME 9.7 fL (7.4-10.4); MONOCYTES 7.8 % (2-11); NEUTROPHILS 80.8 % (40-80); PLATELET COUNT 289 10x3/uL (130-400); RBC 4.52 10x6/uL (4.20-6.10); RDW 14.5 % (11.5-14.5)
[2019-10-10 03:51] LABS: WBC 10.2 10x3/uL (4.8-10.8)
[2019-10-10 04:19] LABS: ALBUMIN 2.7 g/dL (3.4-5.0); ALKALINE PHOSPHATASE 52 U/L (30-120); ALT (SGPT) 18 U/L (10-68); BILIRUBIN - TOTAL 0.71 mg/dL (0.2-1.3); CALC OSMOLALITY 295 mosm/kg (275-300); CALCIUM 8.1 mg/dL (8.5-10.1); CARBON DIOXIDE 24.9 mmol/L (21.0-32.0); CHLORIDE - SERUM 113 mmol/L (98-107); GLUCOSE 133 mg/dL (74-106); MAGNESIUM - SERUM 1.9 mg/dL (1.8-2.4); POTASSIUM - SERUM 3.4 mmol/L (3.5-5.1); PROTEIN - SERUM 6.2 g/dL (6.4-8.2); SODIUM 146 mmol/L (136-145); UREA NITROGEN 21 mg/dL (7-18); eGFR NON AFRICAN AMERICAN 81 mL/min (90-120)
--- NOTE | 2019-10-10 05:00 | NUR ---
PT REPORTS PASSING GAS WITH MINIMAL EFFORT. WILL CONTINUE TO MONITOR.
--- NOTE | 2019-10-10 11:00 | NUR ---
REASSESSMENT COMPLETE PER FLOW SHEET. VS. PT RESTING COMFORTABLY WILL CONTINUE TO MONITOR
[2019-10-11 06:18] LABS: BASOPHILS 0.2 % (0-2); EOSINOPHILS 0.7 % (0-7); HEMATOCRIT 44.1 % (42.0-54.0); HEMOGLOBIN 14.3 g/dL (13.5-17.5); IMMATURE GRANULOCYTES 0.5 % (0-5); LYMPHOCYTES 7.5 % (15-50); MCH 30.5 pg (26.0-34.0); MCHC 32.4 g/dL (31.0-37.0); MEAN PLATELET VOLUME 9.6 fL (7.4-10.4); MONOCYTES 6.4 % (2-11); NEUTROPHILS 84.7 % (40-80); PLATELET COUNT 322 10x3/uL (130-400); RBC 4.69 10x6/uL (4.20-6.10); RDW 14.5 % (11.5-14.5)
[2019-10-11 06:23] LABS: WBC 13.3 10x3/uL (4.8-10.8)
[2019-10-11 07:00] LABS: ALBUMIN 2.6 g/dL (3.4-5.0); ALKALINE PHOSPHATASE 54 U/L (30-120); BILIRUBIN - TOTAL 0.78 mg/dL (0.2-1.3); CALC OSMOLALITY 296 mosm/kg (275-300); CALCIUM 8.3 mg/dL (8.5-10.1); CARBON DIOXIDE 24.4 mmol/L (21.0-32.0); CHLORIDE - SERUM 114 mmol/L (98-107); CREATININE - SERUM 0.9 mg/dL (0.6-1.3); GLUCOSE 143 mg/dL (74-106); MAGNESIUM - SERUM 1.8 mg/dL (1.8-2.4); PHOSPHOROUS 2.3 mg/dL (2.5-4.9); POTASSIUM - SERUM 3.3 mmol/L (3.5-5.1); PROTEIN - SERUM 5.8 g/dL (6.4-8.2); SODIUM 147 mmol/L (136-145); UREA NITROGEN 22 mg/dL (7-18); eGFR NON AFRICAN AMERICAN > 90 mL/min (90-120)
[2019-10-11 07:01] LABS: ALT (SGPT) 13 U/L (10-68)
[2019-10-11 08:00] VITALS: BP 160/82
--- NOTE | 2019-10-11 08:38 | NUR ---
160ML OF SEROUS FLUID OUT OF LEFT ADDY DRAIN. BOTH DRESSINGS TO ADDY DRAINS CHANGED. ZOFRAN GIVEN FOR NAUSEA. DOES COMPLAIN OF PAIN.
[2019-10-11 08:45] VITALS: BP 151/73
--- NOTE | 2019-10-11 09:50 | NUR ---
DILAUDID DIABETES NURSE INITIATED FOR PAIN. 90ML OF SEROUS FLUID OUT FROM LEFT ADDY DRAIN. EMPTIED AND COMPRESSED. WILL CONTINUE TO MONITOR.
[2019-10-11 12:00] VITALS: BP 152/72
[2019-10-11 13:28] VITALS: BP 162/82
--- NOTE | 2019-10-11 14:45 | NUR ---
TELEMETRY PUT ON PT.
[2019-10-11 16:00] VITALS: BP 161/86
--- NOTE | 2019-10-11 16:32 | NUR ---
ADDY DRAIN REMOVED. PT TOLERATED WELL.
[2019-10-11 17:14] VITALS: BP 164/89
[2019-10-12] VITALS: BP 163/85
--- NOTE | 2019-10-12 02:12 | NUR ---
I have reviewed this patient and I concur with the Shift Assessment completed by the Licensed Practical Nurse today this shift.
[2019-10-12 04:00] VITALS: BP 158/85
[2019-10-12 07:00] LABS: BASOPHILS 0.2 % (0-2); EOSINOPHILS 0.5 % (0-7); HEMATOCRIT 48.8 % (42.0-54.0); HEMOGLOBIN 15.9 g/dL (13.5-17.5); IMMATURE GRANULOCYTES 0.7 % (0-5); MCH 30.6 pg (26.0-34.0); MCHC 32.6 g/dL (31.0-37.0); MCV 93.8 fL (80.0-100.0); MONOCYTES 7.4 % (2-11); NEUTROPHILS 85.2 % (40-80); PLATELET COUNT 339 10x3/uL (130-400); RDW 14.4 % (11.5-14.5); WBC 15.1 10x3/uL (4.8-10.8)
[2019-10-12 07:12] LABS: ALBUMIN 2.5 g/dL (3.4-5.0); ALKALINE PHOSPHATASE 54 U/L (30-120); ALT (SGPT) 17 U/L (10-68); BILIRUBIN - TOTAL 0.67 mg/dL (0.2-1.3); CALC OSMOLALITY 296 mosm/kg (275-300); CALCIUM 8.3 mg/dL (8.5-10.1); CARBON DIOXIDE 26.2 mmol/L (21.0-32.0); CHLORIDE - SERUM 112 mmol/L (98-107); CREATININE - SERUM 0.7 mg/dL (0.6-1.3); GLUCOSE 142 mg/dL (74-106); PHOSPHOROUS 3.3 mg/dL (2.5-4.9); POTASSIUM - SERUM 3.5 mmol/L (3.5-5.1); PROTEIN - SERUM 5.9 g/dL (6.4-8.2); SODIUM 146 mmol/L (136-145); UREA NITROGEN 24 mg/dL (7-18); eGFR NON AFRICAN AMERICAN > 90 mL/min (90-120)
[2019-10-12 08:48] VITALS: BP 168/89
--- NOTE | 2019-10-12 09:00 | NUR ---
ASSESSMENT PER FLOW SHEET. PATIENT IS WITHOUT DISTRESS.DRESSING TO ABD X2 CDI. REMAIS WITHOUT NAUSEA. SMALL BM THIS AM. AT BEDSIDE. MONITOR
--- NOTE | 2019-10-12 10:22 | MORECARE ---
CASE MANAGEMENT DISCHARGE SUMMARY PATIENT: ROBERTA KILGORE JR UNIT: [id number] ADM DATE: 10/06/19 AGE: 63 : 59 SEX: M ROOM/BED: D.2222 AUTHOR: GWENDOLYN,DOC PHYSICIAN: REFERRING PHYSICIAN: CHEL DREW MD DATE OF SERVICE: 10/12/19 Discharge Plan Patient Name: ROBERTA KILGORE Facility: [facility]:[place] : 1955 Planned Disposition: Anticipated Discharge Date: Discharge Date: Expected LOS: Initial Reviewer: [email or web address] Initial Review Date: 10/12/2019 Generated: 10/12/19 11:21 am Comments DCP- Discharge Planning Updated by [id number]: Stella Salazar on 10/12/19 9:[address] Patient Name: ROBERTA KILGORE Admission Status: ER Accout number: [id number] Admission Date: 10-06-2019 : 1955 Admission Diagnosis: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 CM discussed availability / needs of home health, REHAB and medical equipment. PATIENT STATES HE WILL NOT NEED REHAB , EQUIPMENT OR HH. HE HAS A DRAIN IN HIS ABDOMEN BUT SAID IT WILL BE OUT BEFORE HE IS DISCHARGED. HE LIVES AT HOME WITH HIS AND SAID SHE CARES FOR HIM. I TALKED TO HIM ABOUT THE POSSIBILITY OF HIM NEEDING HOME HEALTH BUT HE WANTS TO WAIT AND SEE WHAT THE DOCTOR SAYS. I WILL FOLLOW AND ASSIST HIM WITH DC PLANNING/NEEDS. Digital Account Coordinator: Stella Salazar DCPIA - Discharge Planning Initial Assessment Updated by [email or web address]: Stella Salazar on 10/12/19 10:18 am * Is the patient Alert and Oriented? Yes * PCP SAI * Pharmacy [facility] * Preadmission Environment Home with Family * ADLs Independent * Equipment None * Additional services required to return to the preadmission environment? No * Can the patient safely return to the preadmission environment? Yes * Has this patient been hospitalized within the prior 30 days at any hospital? No Patient Name: ROBERTA KILGORE Page [phone] at 1022 All edits/amendments must be made on the electronic document DICTATION DATE: 10/12/19 1021 DATAPOWER CONSULTANT: RACQUEL 10/12/19 1021 RPT#: [id number] DC DATE: STATUS: ADM IN [facility] [address] [place] [address] END OF REPORT
[2019-10-12 13:07] VITALS: BP 160/86
--- NOTE | 2019-10-12 13:32 | OP ---
PATIENT NAME: ROBERTA KILGORE JR MEDICAL RECORD: [id number] :[birth year] LOCATION:D.MS [address] ADMISSION DATE:10/06/19 SURGEON: HOWARD AC MD DATE OF OPERATION: 10/06/2019 PREOPERATIVE DIAGNOSIS: Pneumoperitoneum. POSTOPERATIVE DIAGNOSES: Pneumoperitoneum secondary to perforated sigmoid diverticulum. PROCEDURE: Laparoscopic lavage with placement of drain. SURGEON: Howard Ac MD BUSINESS MANAGER: None. BLOOD LOSS: Minimal. ANESTHESIA: General. COMPLICATIONS: None. OPERATIVE COURSE: The patient was conveyed to the operating room emergently. General anesthesia was induced by the anesthesia staff. The abdomen was sterilely prepped and draped. A small skin esteban was accomplished in the left upper quadrant. Veress needle was inserted through the skin esteban into the peritoneal cavity. CO2 insufflation was begun. Once a sufficient pneumoperitoneum had been achieved, a 5-mm trocar was inserted. Under direct internal vision utilizing television camera, two 8 mm trocars were inserted, one in the right upper quadrant, one in the left upper quadrant. An abdominal survey was undertaken. Purulence was identified in the pelvis. Feculent fluid was identified in the pelvis as well. I noted no evidence of exudate over the duodenum or stomach. There was diffuse peritonitis present. I would classify this as Hinchey class 3. I lavaged copiously with normal saline. I agitated the small bowel with a grasper in order to prevent interleave abscesses. I then aspirated some of the fluid. Through the 8 mm trocars, I advanced a 19-Latvian round fully fluted closed suction drains. One of these was placed down into the pelvis. All the trocars were removed and the abdomen desufflated. The drains were sutured to skin with 2-0 nylons. The trocar sites were closed with interrupted intracuticular 3-0 Vicryls. Benzoin and Steri-Strips were applied. The patient was then extubated and conveyed to post-anesthesia care unit and then he will be conveyed to the intensive care unit. We had very little bleeding. My plan is to continue IV antibiotics. Hopefully, the diverticular perforation has already patched itself. If not, hopefully it will over the course of the next few days and I am hopeful that we can do an interval segmental colon resection in 6 weeks to 3 months, hopefully to be done laparoscopically. TRANSINT:[id number] Voice Confirmation ID: [id number] DOCUMENT ID: [id number] OPERATIVE REPORT [id number] MAGUI ROGER,ROBERTA AC, HOWARD KIM at 1332 CC: [id number] DICTATION DATE: 10/07/191741 CAKE MIXER: 10/07/19 2328 ADM IN [place] [id number] [place] [address]
--- NOTE | 2019-10-12 14:39 | NUR ---
Nutrition follow-up: Pt remains on clear liquid diet 2/2 continued nausea, vomiting Labs reviewed Multiple BM's recorded Wt: 270# Recommend starting ProcalAmine PPN @ 125 ml/hr RDN following.
[2019-10-12 16:43] VITALS: BP 163/84
[2019-10-12 20:00] VITALS: BP 151/75
[2019-10-13] VITALS: BP 158/85
[2019-10-13 04:00] VITALS: BP 156/75
[2019-10-13 06:40] LABS: BASOPHILS 0.1 % (0-2); EOSINOPHILS 1.3 % (0-7); HEMATOCRIT 47.5 % (42.0-54.0); HEMOGLOBIN 15.5 g/dL (13.5-17.5); IMMATURE GRANULOCYTES 0.9 % (0-5); LYMPHOCYTES 11.2 % (15-50); MCH 30.6 pg (26.0-34.0); MCHC 32.6 g/dL (31.0-37.0); MCV 93.7 fL (80.0-100.0); MONOCYTES 7.6 % (2-11); NEUTROPHILS 78.9 % (40-80); PLATELET COUNT 364 10x3/uL (130-400); RBC 5.07 10x6/uL (4.20-6.10); RDW 14.4 % (11.5-14.5); WBC 13.8 10x3/uL (4.8-10.8)
[2019-10-13 07:00] LABS: ALBUMIN 2.4 g/dL (3.4-5.0); ALKALINE PHOSPHATASE 52 U/L (30-120); ALT (SGPT) 18 U/L (10-68); BILIRUBIN - TOTAL 0.54 mg/dL (0.2-1.3); CALC OSMOLALITY 298 mosm/kg (275-300); CALCIUM 8.5 mg/dL (8.5-10.1); CARBON DIOXIDE 26.6 mmol/L (21.0-32.0); CHLORIDE - SERUM 111 mmol/L (98-107); CREATININE - SERUM 0.8 mg/dL (0.6-1.3); GLUCOSE 146 mg/dL (74-106); POTASSIUM - SERUM 3.6 mmol/L (3.5-5.1); PROTEIN - SERUM 5.7 g/dL (6.4-8.2); SODIUM 146 mmol/L (136-145); UREA NITROGEN 26 mg/dL (7-18); eGFR NON AFRICAN AMERICAN > 90 mL/min (90-120)
[2019-10-13 08:00] VITALS: BP 182/87
--- NOTE | 2019-10-13 08:00 | NUR ---
PATIENT IS WITHOUT DISTRESS.CALL LIGHT IN REACH
--- NOTE | 2019-10-13 08:45 | NUR ---
PT SUPINE IN BED UPON ENTERING. ALERT AND ORIENTED X4. ADMINISTERED MORNING MEDICATION, NO DIFFICULTIES. HUNG IV ANTIBIOTICS. PT COMPLAINT OF PAIN IV IN RIGHT HAND, FLUSHES AND IS NO WARM TO THE TOUCH. HOWEVER; WHEN GIVING IV ANTIBIOTICS THE RIGHT UPPER ARM IV IS BEING USED. NO COMPLAINTS OF PAIN. ASSESSMENT PERFORMED AT THIS TIME. PT DENIES ANY NEEDS AT THIS TIME. BED IN LOWEST POSITION, BED RAILS X2, CALL LIGHT WITHIN REACH. WILL CONTINUE TO MONITOR.
[2019-10-13 11:09] LABS: FUNGUS STAIN Final report (())
[2019-10-13 12:00] VITALS: BP 166/83
--- NOTE | 2019-10-13 12:01 | NUR ---
ADMINISTERED MEDICATION AT THIS TIME. PT IN BEDSIDE CHAIR, RESTING COMFORTABLY. WAITING FOR PT TO HAVE ULTRASOUND TO RIGHT ARM TO RULE OUT DVT. DENIES ANY NEEDS. WILL CONTINUE TO MONITOR.
--- NOTE | 2019-10-13 14:40 | NUR ---
ADMINISTERED MEDICATION, RESTING COMFORTABLY IN BED. DENIES ANY NEEDS. STILL WAITING FOR VENOUS DOPPLER OF RIGHT ARM. WILL CONTINUE TO MONITOR.
--- NOTE | 2019-10-13 15:52 | NUR ---
ADMINISTERED PRN NORCO FOR PAIN 6/10 IN ABDOMEN. PT UPRIGHT ON BEDSIDE. IN ROOM. DENIES ANY NEEDS. ENCOURAGED PT TO WALK, IT WILL HELP WITH GAS. WILL CONTINUE TO MONITOR.
[2019-10-13 16:00] VITALS: BP 161/84
--- NOTE | 2019-10-13 17:31 | NUR ---
ADMINISTERED MEDICATION. PT REQUESTED SHOWER, PROVIDED TOWELS AND A NEW GOWN. TAPED OFF IV IN UPPER RIGHT ARM. DC IV FROM RIGHT HAND DUE TO PAIN AND SWELLING, TIP INTACT. COVERED SITE WITH 2X2 AND PRESSURE TAPE. AT BEDSIDE. PT DENIED BLOOD SUGAR CHECK AGAIN. WILL CONTINUE TO MONITOR.
[2019-10-13 18:08] LABS: ACID FAST SMEAR Negative (()); AFB SPECIMEN PROCESSING Not Indicated (())
--- NOTE | 2019-10-13 18:30 | NUR ---
PT BACK IN BED FROM SHOWER. RECONNECTED TO TELEMETRY, REDRESSED ADDY DRAIN SITE AND OTHER INCISIONAL SITE. RECONNECTED TO IV, TOLERATED ALL WELL. DENIES ANY NEEDS. RESTING COMFORTABLY IN BED. AT BEDSIDE. WILL CONTINUE TO MONITOR.
--- NOTE | 2019-10-13 19:00 | NUR ---
BEDSIDE REPORT RECEIVED AND CARE OF PT ASSUMED. PT LYING IN LOW ETIENNE'S POSITION WATCHING TV. IV TO RIGHT UPPER ARM SALINE LOCKED. LEFT ADDY DRAIN WELL COMPRESSED. WILL MONITOR FOR NEEDS.
[2019-10-13 20:00] VITALS: BP 153/77
--- NOTE | 2019-10-13 20:24 | NUR ---
HS MEDICATIONS GIVEN TO INCLUDE NORCO PER REQUEST FOR PAIN. FSBS 142 THIS CHECK REQUIRING NO COVERAGE PER THE SLIDING SCALE.
--- NOTE | 2019-10-13 20:30 | NUR ---
GAVE JELLO FOR HS SNACK.
[2019-10-14] VITALS: BP 154/73
--- NOTE | 2019-10-14 03:36 | NUR ---
GAVE NORCO AND ZOFRAN FOR PAIN AND NAUSEA. PT VOMITED 150 ML BROWNISH EMESIS. FEELING BETTER AFTER ZOFRAN ADMINISTRATION. CHANGED SOILED GOWN.
[2019-10-14 04:00] VITALS: BP 118/69
[2019-10-14 05:35] LABS: BASOPHILS 0.1 % (0-2); EOSINOPHILS 2.1 % (0-7); HEMATOCRIT 45.1 % (42.0-54.0); HEMOGLOBIN 14.9 g/dL (13.5-17.5); MCH 30.7 pg (26.0-34.0); MEAN PLATELET VOLUME 9.8 fL (7.4-10.4); MONOCYTES 9.3 % (2-11); NEUTROPHILS 75.5 % (40-80); PLATELET COUNT 349 10x3/uL (130-400); RBC 4.85 10x6/uL (4.20-6.10); WBC 13.5 10x3/uL (4.8-10.8)
[2019-10-14 05:56] LABS: ALBUMIN 2.3 g/dL (3.4-5.0); ALKALINE PHOSPHATASE 48 U/L (30-120); ALT (SGPT) 15 U/L (10-68); BILIRUBIN - TOTAL 0.54 mg/dL (0.2-1.3); CALC OSMOLALITY 287 mosm/kg (275-300); CALCIUM 8.1 mg/dL (8.5-10.1); CARBON DIOXIDE 26.2 mmol/L (21.0-32.0); CHLORIDE - SERUM 108 mmol/L (98-107); CREATININE - SERUM 0.8 mg/dL (0.6-1.3); GLUCOSE 129 mg/dL (74-106); POTASSIUM - SERUM 3.5 mmol/L (3.5-5.1); PROTEIN - SERUM 5.4 g/dL (6.4-8.2); SODIUM 142 mmol/L (136-145); UREA NITROGEN 22 mg/dL (7-18); eGFR NON AFRICAN AMERICAN > 90 mL/min (90-120)
[2019-10-14 08:33] VITALS: BP 177/82
--- NOTE | 2019-10-14 09:03 | NUR ---
PT ALERT X 4. BREATH SOUNDS CLEAR BILAT. IV TO RIGHT UPPER ARM, SALINE LOCKED. RIGHT ARM SWOLLEN, ENCOURAGED PT TO ELEVATE ARM. DRESSINT TO RIGHT SIDE OF ABDOMEN CDI. ADDY DRAIN TO LEFT SIDE OF ABDOMEN, SEROUS OUTPUT. PT REPORTING PAIN OF 5/10, NOT WANTING ANY MEDICATION AT THIS TIME. AT BEDSIDE. BED LOW, CALL LIGHT IN REACH. NO OTHER NEEDS AT THIS TIME.
[2019-10-14 12:00] VITALS: BP 180/85
[2019-10-14 16:00] VITALS: BP 155/79
[2019-10-14 16:08] LABS: AEROBE ID Final report (()); RESULT 1 Aerococcus viridans (())
--- NOTE | 2019-10-14 19:00 | NUR ---
BEDSIDE REPORT RECEIVED AND CARE OF PT ASSUMED. PT SITTING UP IN BED VISITING WITH SPOUSE. IV TO RIGHT UPPER ARM SALINE LOCKED. TELEMETRY IN PLACE AND READING SR AT THIS ASSESSMENT. WILL MONITOR FOR NEEDS.
[2019-10-14 20:00] VITALS: BP 135/78
--- NOTE | 2019-10-14 20:18 | NUR ---
HS MEDICATIONS GIVEN TO INCLUDE NORCO FOR PAIN. WILL CONTINUE TO MONITOR FOR NEEDS.
[2019-10-15] VITALS: BP 161/86; BP 87/53
[2019-10-15 04:00] VITALS: BP 164/89
[2019-10-15 05:43] LABS: ALBUMIN 2.5 g/dL (3.4-5.0); ALKALINE PHOSPHATASE 54 U/L (30-120); ALT (SGPT) 18 U/L (10-68); BILIRUBIN - TOTAL 0.66 mg/dL (0.2-1.3); CALC OSMOLALITY 283 mosm/kg (275-300); CALCIUM 8.2 mg/dL (8.5-10.1); CARBON DIOXIDE 26.6 mmol/L (21.0-32.0); CHLORIDE - SERUM 105 mmol/L (98-107); CREATININE - SERUM 0.8 mg/dL (0.6-1.3); GLUCOSE 124 mg/dL (74-106); POTASSIUM - SERUM 3.5 mmol/L (3.5-5.1); PROTEIN - SERUM 5.7 g/dL (6.4-8.2); SODIUM 141 mmol/L (136-145); UREA NITROGEN 19 mg/dL (7-18); eGFR NON AFRICAN AMERICAN > 90 mL/min (90-120)
[2019-10-15 05:44] LABS: BASOPHILS 0.2 % (0-2); HEMATOCRIT 47.1 % (42.0-54.0); HEMOGLOBIN 15.6 g/dL (13.5-17.5); IMMATURE GRANULOCYTES 0.8 % (0-5); LYMPHOCYTES 14.5 % (15-50); MCH 30.4 pg (26.0-34.0); MCHC 33.1 g/dL (31.0-37.0); MCV 91.8 fL (80.0-100.0); MONOCYTES 7.2 % (2-11); NEUTROPHILS 75.3 % (40-80); PLATELET COUNT 380 10x3/uL (130-400); RBC 5.13 10x6/uL (4.20-6.10); RDW 13.7 % (11.5-14.5); WBC 12.9 10x3/uL (4.8-10.8)
[2019-10-15 08:10] VITALS: BP 166/86
--- NOTE | 2019-10-15 09:01 | NUR ---
PT ALERT X 4. BREATH SOUNDS CLEAR BILAT. ADDY DRAIN TO LEFT SIDE OF ABDOMEN, SEROUS OUTPUT. DRESSING TO ABDOMEN CDI. IV TO RIGHT UPPER, SALINE LOCKED. +2 EDEMA TO RIGHT ARM. +1 EDEMA TO LEFT ARM. AT BEDSIDE. BED LOW, CALL LIGHT IN REACH. NO OTHER NEEDS AT THIS TIME.
[2019-10-15 12:19] VITALS: BP 169/85
[2019-10-15 16:44] VITALS: BP 174/83
--- NOTE | 2019-10-15 19:00 | NUR ---
BEDSIDE REPORT RECEIVED AND CARE OF PT ASSUMED. PT SITTING UP IN CHAIR WATCHING TV. DISCUSSED HS MEDS PT WANTS NAUSEA DNA PAIN MED WITH HS MEDS.
[2019-10-15 20:00] VITALS: BP 141/75
--- NOTE | 2019-10-15 20:56 | NUR ---
HS MEDICATIONS GIVEN TO INCLUDE NORCO AND ZOFRAN PER REQUEST FOR PAIN AND NAUSEA.
[2019-10-16] VITALS: BP 131/71
[2019-10-16 04:00] VITALS: BP 103/73
[2019-10-16 05:15] LABS: BASOPHILS 0.2 % (0-2); EOSINOPHILS 1.8 % (0-7); HEMATOCRIT 45.4 % (42.0-54.0); IMMATURE GRANULOCYTES 0.7 % (0-5); LYMPHOCYTES 13.3 % (15-50); MCH 30.3 pg (26.0-34.0); MCV 91.7 fL (80.0-100.0); MONOCYTES 7.6 % (2-11); NEUTROPHILS 76.4 % (40-80); PLATELET COUNT 369 10x3/uL (130-400); RBC 4.95 10x6/uL (4.20-6.10); RDW 13.8 % (11.5-14.5); WBC 12.4 10x3/uL (4.8-10.8)
[2019-10-16 05:33] LABS: ALBUMIN 2.4 g/dL (3.4-5.0); ALKALINE PHOSPHATASE 44 U/L (30-120); ALT (SGPT) 20 U/L (10-68); BILIRUBIN - TOTAL 0.68 mg/dL (0.2-1.3); CALC OSMOLALITY 280 mosm/kg (275-300); CARBON DIOXIDE 27.3 mmol/L (21.0-32.0); CHLORIDE - SERUM 104 mmol/L (98-107); CREATININE - SERUM 0.9 mg/dL (0.6-1.3); GLUCOSE 117 mg/dL (74-106); POTASSIUM - SERUM 3.1 mmol/L (3.5-5.1); PROTEIN - SERUM 5.6 g/dL (6.4-8.2); SODIUM 139 mmol/L (136-145); UREA NITROGEN 18 mg/dL (7-18); eGFR NON AFRICAN AMERICAN > 90 mL/min (90-120)
[2019-10-16 08:18] VITALS: BP 152/76
--- NOTE | 2019-10-16 08:18 | NUR ---
PT SITTING UP IN CHAIR AT BEDSIDE. RESP EVEN AND UNLABORED. REPORTS PAIN AT 3/10 AT THIS TIME. PT REQUEST LINEN FOR SHOWER. PROVIDED AT THIS TIME. LAP SITES X 3 WITH ADDY DRAIN INTACT. DENIES FURTHER NEEDS AT THIS TIME. CL WITIN REACH. ENCOURAGED TO CALL WITH NEEDS. CONTINUE POC
[2019-10-16 12:34] VITALS: BP 129/79
[2019-10-16] MEDS ORDERED: COLACE100 MG PO (14:44)
[2019-10-16] MEDS ORDERED: HYDROCODON-ACE1 EAC7 PO (14:45)
[2019-10-16] MEDS ORDERED: LEVAQUIN750 MG (14:45)
[2019-10-16] MEDS ORDERED: FLAGYL500 MG PO (14:45)
--- NOTE | 2019-10-17 09:03 | MORECARE ---
CASE MANAGEMENT DISCHARGE SUMMARY PATIENT: ROBERTA KILGORE JR UNIT: [id number] ADM DATE: 10/06/19 AGE: 63 : 59 SEX: M ROOM/BED: D.2222 AUTHOR: GWENDOLYN,DOC PHYSICIAN: REFERRING PHYSICIAN: CHEL DREW MD DATE OF SERVICE: 10/17/19 Discharge Plan Patient Name: ROBERTA KILGORE Facility: [facility]:[place] : 1955 Planned Disposition: Anticipated Discharge Date: Discharge Date: 10/16/2019 Expected LOS: Initial Reviewer: [email or web address] Initial Review Date: 10/12/2019 Generated: 10/17/19 10:03 am DCP- Discharge Planning Updated by [email or web address]: Stella Salazar on 10/12/19 9:[address] Patient Name: ROBERTA KILGORE Admission Status: ER Accout number: [id number] Admission Date: 10-06-2019 : 1955 Admission Diagnosis: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 CM discussed availability / needs of home health, REHAB and medical equipment. PATIENT STATES HE WILL NOT NEED REHAB , EQUIPMENT OR HH. HE HAS A DRAIN IN HIS ABDOMEN BUT SAID IT WILL BE OUT BEFORE HE IS DISCHARGED. HE LIVES AT HOME WITH HIS AND SAID SHE CARES FOR HIM. I TALKED TO HIM ABOUT THE POSSIBILITY OF HIM NEEDING HOME HEALTH BUT HE WANTS TO WAIT AND SEE WHAT THE DOCTOR SAYS. I WILL FOLLOW AND ASSIST HIM WITH DC PLANNING/NEEDS. Principal Database Developer: Stella Salazar DCPIA - Discharge Planning Initial Assessment Updated by [id number]: Stella Salazar on 10/12/19 10:18 am * Is the patient Alert and Oriented? Yes * PCP SAI * Pharmacy [facility] * Preadmission Environment Home with Family * ADLs Independent * Equipment None * Additional services required to return to the preadmission environment? No * Can the patient safely return to the preadmission environment? Yes * Has this patient been hospitalized within the prior 30 days at any hospital? No Last DP export: 10/12/19 9:22 a Patient Name: ROBERTA KILGORE Page [id number] at 0903 All edits/amendments must be made on the electronic document DICTATION DATE: 10/17/19902 LAMINATION TECHNICIAN: RACQUEL 10/17/19902 RPT#: [id number] DC DATE:10/16/19 STATUS: DIS IN [facility] [address] [place] [address] END OF REPORT
== END 2019-10-16 15:34 | disposition home or self-care (01) | DRG 356 ==
LOC: D.ER 14:20 → D.MS 16:31 → D.ICU 16:31 → D.MS 10-10 18:06
PROVIDERS: Emergency Medicine; Family Medicine; Surgery; ADMIT Internal Medicine Nephrology; ATTEND Internal Medicine Nephrology
PROC: 0W9J40Z Drainage of Pelvic Cavity with Drainage Device, Percutaneous Endoscopic Approach (ICD-10-PCS; principal; 2019-10-06 17:45)
DX: K63.1 Perforation of intestine (nontraumatic) (principal); K65.9 Peritonitis, unspecified; N17.9 Acute kidney failure, unspecified; N39.0 Urinary tract infection, site not specified; I48.20 Chronic atrial fibrillation, unspecified; F32.9 Major depressive disorder, single episode, unspecified; E11.9 Type 2 diabetes mellitus without complications; Z79.01 Long term (current) use of anticoagulants; E78.5 Hyperlipidemia, unspecified; I10 Essential (primary) hypertension; E83.42 Hypomagnesemia

== ENCOUNTER 2019-12-21 17:12 | Inpatient (IN) | payer BC ==
[~2019-12-21] VITALS: Ht 177.8 cm; Wt 110.6 kg
[~2019-12-21 17:12] MED LIST changes: +BAYER CHEWABLE81 MG; +CANDESARTAN; +COLACE100 MG PO; +CYMBALTA60 MG; +CYMBALTA60 MG PO; +ELIQUIS5 MG; +FLAGYL500 MG PO; +HYDROCODON-ACE1 EAC7 PO; +LEVAQUIN750 MG; +MULTAQ400 MG; +TOPROL XL25 MG
[2019-12-25 11:41] LABS: BASOPHILS 0.6 % (0-2); EOSINOPHILS 2.2 % (0-7); HEMOGLOBIN 15.1 g/dL (13.5-17.5); IMMATURE GRANULOCYTES 0.2 % (0-5); LYMPHOCYTES 31.3 % (15-50); MCHC 32.8 g/dL (31.0-37.0); MCV 91.3 fL (80.0-100.0); MEAN PLATELET VOLUME 9.3 fL (7.4-10.4); MONOCYTES 6.7 % (2-11); PLATELET COUNT 327 10x3/uL (130-400); RBC 5.04 10x6/uL (4.20-6.10); WBC 8.7 10x3/uL (4.8-10.8)
[2019-12-25 11:44] LABS: CALC OSMOLALITY 278 mosm/kg (275-300); CALCIUM 8.8 mg/dL (8.5-10.1); CARBON DIOXIDE 24.3 mmol/L (21.0-32.0); CHLORIDE - SERUM 105 mmol/L (98-107); CREATININE - SERUM 0.9 mg/dL (0.6-1.3); GLUCOSE 132 mg/dL (74-106); INR 1.02 (0.85-1.17); POTASSIUM - SERUM 4.1 mmol/L (3.5-5.1); PROTIME 13.3 SECONDS (11.6-15.0); SODIUM 138 mmol/L (136-145); UREA NITROGEN 15 mg/dL (7-18); eGFR NON AFRICAN AMERICAN > 90 mL/min (90-120)
[2019-12-25 11:45] LABS: APTT 33.6 SECONDS (22.8-39.4)
[2019-12-27] VITALS (8 sets, daily range): BP systolic 94–122; BP diastolic 55–85; BMI 34.2; BMI 34.1; BMI 34.9
--- NOTE | 2019-12-27 12:29 | NUR ---
UPON ARRIVAL, PT WAS RECEIVING LEVOPHED 5 MCG/MIN. BP WITHIN ACCEPTABLE PARAMETERS, CLOSE TO BASELINE.
--- NOTE | 2019-12-27 13:03 | NUR ---
PT ARRIVED FROM PACU VIA BED. PT IS A&O LYING BACK IN BED RESTING QUIETLY. PT HAS AN EPIDURAL IN PLACE AND DENIES ANY CURRENT PAIN. INSERTION SITE CLEAN AND DRY AND SECURED WITH TAPE. PT HAS 4 LAP INCISIONS ALL HAVE DRSGS CDI. PT HAS A BACON CATHETER DRAINING TO GRAVITY OFF R.SIDE OF THE BED. PT WAS ON LEVOPHED DRIP BUT BP IS AT BASELINE SO I STOPPED IT. PT DENIES ANY CURRENT NEEDS AT THIS TIME. WILL CHECK CHART AND ORDERS AND CPOC.
--- NOTE | 2019-12-27 14:30 | NUR ---
PT RESTING QUIETLY IN BED. PT STATES HIS EPIDURAL IS PROVIDING RELIEF AND DENIES ANY CURRENT NEEDS AT THIS TIME. CL IN REACH, BED IN LOWEST, SIDE RAILS X2. WILL CTM.
--- NOTE | 2019-12-27 15:19 | NUR ---
RECEIVED REPORT FROM RN. Jesus NAILS. PT IS AWAKE AND ALERT, NO S/SX OF DISTRESS, PT EDUCATED ON EPIDURAL AND BOLUSES BY RN. CL IN REACH NO NEEDS VOICED. ASSUME PT CARE
--- NOTE | 2019-12-27 15:28 | NUR ---
RECEIVED TEXT BACK FROM DR AC AND PT IS NPO AT THIS TIME. CONTINUE WITH PLAN OF CARE
[2019-12-27 18:23] LABS: BASOPHILS 0.1 % (0-2); EOSINOPHILS 0 % (0-7); HEMATOCRIT 44.9 % (42.0-54.0); HEMOGLOBIN 14.8 g/dL (13.5-17.5); IMMATURE GRANULOCYTES 0.3 % (0-5); LYMPHOCYTES 7.1 % (15-50); MCH 30.3 pg (26.0-34.0); MCV 91.8 fL (80.0-100.0); MEAN PLATELET VOLUME 9.2 fL (7.4-10.4); NEUTROPHILS 86.5 % (40-80); PLATELET COUNT 306 10x3/uL (130-400); RBC 4.89 10x6/uL (4.20-6.10); RDW 14.9 % (11.5-14.5); WBC 11.4 10x3/uL (4.8-10.8)
--- NOTE | 2019-12-27 18:23 | NUR ---
PT LYING IN BED C/O SORENESS IN ABDOMEN. GAVE PT FRESH ICE PACK, NO OTHER NEEDS VOICED AT THIS TIME. CONTINUE WITH PLAN OF CARE
--- NOTE | 2019-12-27 18:54 | NUR ---
PT SALES AND TRAINING SPECIALIST LIGHT REQUESTING SPRITE OR WATER, INFORMED PT THAT I HAVE SPOKEN TO DR AC TO DOUBLE CHECK ORDERS AND OF RIGHT NOW ORDERS ARE FOR NPO UNTIL FURTHER NOTICE. OFFERED PT MOUTH SWABS AND PT DECLINED. NO OTHER NEEDS AT THIS TIME. CONTINUE WITH PLAN OF CARE
[2019-12-27 19:04] LABS: ANION GAP 15.7 mmol/L (8-16); CALCIUM 8.6 mg/dL (8.5-10.1); CREATININE - SERUM 1.1 mg/dL (0.6-1.3); POTASSIUM - SERUM 4.7 mmol/L (3.5-5.1)
--- NOTE | 2019-12-27 19:10 | NUR ---
SHIFT ASSESSMENT COMPLETE, PT IS ALERT AND ORIENTED, DENIES ANY WANTS OR NEEDS AT THIS TIME, VSS, CALL LIGHT IN REACH
--- NOTE | 2019-12-27 19:40 | NUR ---
PT ON CL STATED THAT PER DR AC HE CAN HAVE ICE CHIPS. DR AC JUST IN UNIT, WILL UPDATE PT DIET TO INCLUDE ICE CHIPS
--- NOTE | 2019-12-27 20:13 | NUR ---
PT RESTING, EASILY AWAKENED, NO C/O PAIN. NO NEEDS VOICED, IV IN LEFT HAND PATENT, CDI, LAP SITES CDI. ICA PACK ON SITE. CONTINUE WITH PLAN OF CARE
--- NOTE | 2019-12-27 20:31 | NUR ---
RECEIVED ORDERS TO PLACE PT ON 2L OF O2 AND DO NOT DC ORDERS EVEN IF PT IS SAT AT NORMAL VALUES. WILL PASS ON ORDRES IN REPORT. PT IS ASLEEP, EASILY AWAKENED FOR O2 PLACEMENT AND PT VERBALIZED UNDERSTANDING OF 'S ORDERS AND STATED DR AC HAD DISCUSSED THIS WITH HIM. NO OTHER NEEDS AT THIS TIME. CONTINUE WITH PLAN OF CARE
--- NOTE | 2019-12-27 20:46 | NUR ---
ACKNOWLEDGED NURSING MESSAGE TO REPORT URINE OUTPUT LESS THAN 30CC PER HR TO WILL RELAY MESSAGE TO ONCOMING NURSE
--- NOTE | 2019-12-27 21:30 | NUR ---
INTRODUCED SELF TO PT. EXPLAINED THAT I WOULD TAKE CARE OF HIM FOR THE NEXT FEW HOURS. HE IS AWAKE AND ALERT. SKIN IS WARM AND DRY. HE HAS TWO VISIBLE LAP INCISIONS WITH BANIAIDS OF THEM AND THEN A LARGER DRESSING OVER THE LOWER ABD. HIS BACON CATHETER IS DRAINNG GREEN/BLUE URINE. HE HAS AN IV INFUSING IN HIS LEFT HAND NS AT 125 ML/HR. THE SITE LOOKS GOOD WITH NO REDNESS OR LEAKING NOTED. HE IS IN ATRIL FIB WITH MULTIPLE PVS'S NOTED. HIS CALL LIGHT IS CLOSE AT HAND. SIDE RAILS X2 IN PLACE. HIS EPIDURAL IS WORKING WELL AND PT WILL PUNCH IS BUTTON WHEN HE CAN. PT HAS BEEN MOVING HIS FEET AROUND TRYING TO EXERCISE THEM.
--- NOTE | 2019-12-27 22:15 | NUR ---
PT NAPPING. I TOOK HIS GLASSES OFF AND THEY'RE ON THE BEDSIDE TABLE. NO C/O OR NEEDS AT THIS TIME.
[2019-12-28] VITALS (25 sets, daily range): BP systolic 82–127; BP diastolic 41–91; Ht 177.8 cm; Wt 110.6 kg
--- NOTE | 2019-12-28 01:19 | NUR ---
IN PT ROOM FOR IV MEDICATION. PT IS AWAKE AND ALERT AT THIS TIME. HE HAS NO C/O PAIN AND HAS NO NEEDS
[2019-12-28 05:26] LABS: CALC OSMOLALITY 277 mosm/kg (275-300); CALCIUM 8.4 mg/dL (8.5-10.1); CHLORIDE - SERUM 105 mmol/L (98-107); CREATININE - SERUM 0.9 mg/dL (0.6-1.3); GLUCOSE 121 mg/dL (74-106); MAGNESIUM - SERUM 1.5 mg/dL (1.8-2.4); PHOSPHOROUS 4.1 mg/dL (2.5-4.9); POTASSIUM - SERUM 4.4 mmol/L (3.5-5.1); SODIUM 137 mmol/L (136-145); UREA NITROGEN 21 mg/dL (7-18); eGFR NON AFRICAN AMERICAN > 90 mL/min (90-120)
--- NOTE | 2019-12-28 06:48 | NUR ---
PT HAS HAD A GOOD NIGHT. CONT EPIDURAL. IV AT 125ML/HR
--- NOTE | 2019-12-28 07:57 | NUR ---
DR. MARTI NOTIFIED OF AFIB WITH RVR AT RATE OF 120-140'S NEW ORDER RECEIVED FOR CARDIOLOGY CONSULT.
--- NOTE | 2019-12-28 08:02 | NUR ---
SPOKE WITH CARDIOLOGY PENDERGRAFT, ACCOUNTANT SUPERVISOR GIVE AMIODARONE IF LIVER ENZYMES WITHIN NORMAL LIMITS. LAB ORDERED WILL CONTINUE TO MONITOR.
[2019-12-28 09:11] LABS: ALBUMIN 3.4 g/dL (3.4-5.0); ALKALINE PHOSPHATASE 59 U/L (30-120); ALT (SGPT) 21 U/L (10-68); BILIRUBIN - TOTAL 0.88 mg/dL (0.2-1.3); PROTEIN - SERUM 6.2 g/dL (6.4-8.2)
--- NOTE | 2019-12-28 13:00 | NUR ---
PATIENT MOVED TO ROOM 2308 IN GOOD STABLE CONDITION.
--- NOTE | 2019-12-28 14:46 | NUR ---
ANESTHESIA PAGED FOR EPIDURAL GTT RUNNING LOW. AWAITING CALL BACK.
--- NOTE | 2019-12-28 15:51 | NUR ---
SPOKE WITH ZAK, APPLICATION PACKAGER AND NOTIFIED HIM OF EPIDURAL BEING LOW.
--- NOTE | 2019-12-28 16:28 | NUR ---
EPIDURAL GTT CHANGED OUT BY MOE CRESPO.
--- NOTE | 2019-12-28 20:00 | NUR ---
ASSESSMENT PER FLOW SHEET, VS CONTINUE, EPIDURAL INFUSING PER ANESTHESIA ORDERS, IV IN LEFT HAND INTACT WITH NO REDNESS OR EDEMA INFUSING VIA PUMP NS AT 125 ML/HR, AMIODARONE INFUSING VIA PUMP AT 16.7 ML/HR PER MD ORDERS, SEE EMAR, 4 ABD INC WITH DRESSINGS CDI WITH NO DRAINAGE NOTED, PT DENIES FLATUS, BACON CATH INTACT DRAINING DARK YELLOW URINE, PT DENIES NEEDS OR PAIN AT THIS TIME
--- NOTE | 2019-12-28 21:28 | NUR ---
PT RESTING, EPIDURAL CHECK DONE, PT DENIES NEEDS AT THIS TIME
--- NOTE | 2019-12-28 22:40 | NUR ---
PT RESTING WITH EYES CLOSED, RESP QUIET, NO DISTRESS NOTED, LEFT UNDISTURBED AT THIS TIME
--- NOTE | 2019-12-28 23:00 | NUR ---
PT AWAKE AT THIS TIME, SHIFT REASSESSMENT PER FLOW SHEET, PT DENIES NEEDS OR PAIN AT THIS TIME
[2019-12-29] VITALS (24 sets, daily range): BP systolic 100–169; BP diastolic 68–114
--- NOTE | 2019-12-29 02:17 | NUR ---
HUNG NEW BAG OF AMIODARONE PER MD ORDERS, SEE EMAR
--- NOTE | 2019-12-29 03:45 | NUR ---
PT RESTING WITH EYES CLOSED, AROUSES TO SOFT VERBAL STIMULATION, VS CONTINUE, I&O'S COLLECTED, PT DENIES NEEDS OR PAIN AT THIS TIME, FALL PRECAUTIONS IN PLACE
[2019-12-29 04:23] LABS: CALC OSMOLALITY 277 mosm/kg (275-300); CALCIUM 7.9 mg/dL (8.5-10.1); CARBON DIOXIDE 22.8 mmol/L (21.0-32.0); CHLORIDE - SERUM 106 mmol/L (98-107); CREATININE - SERUM 0.9 mg/dL (0.6-1.3); GLUCOSE 130 mg/dL (74-106); POTASSIUM - SERUM 3.7 mmol/L (3.5-5.1); SODIUM 138 mmol/L (136-145); eGFR NON AFRICAN AMERICAN > 90 mL/min (90-120)
[2019-12-29 04:26] LABS: UREA NITROGEN 13 mg/dL (7-18)
--- NOTE | 2019-12-29 05:45 | NUR ---
PT RESTING WITH EYES CLOSED, AROUSES TO SOFT VERBAL STIMULATION, EPIDURAL CHECK DONE, PT DENIES NEEDS OR PAIN AT THIS TIME
--- NOTE | 2019-12-29 07:30 | NUR ---
DR. SANTAMARIA AT BEDSIDE. EPIDURAL REMOVED. SITE CLEAN AND FREE OF CSF. PT TOLERATED WELL. PILLOW RECIEVED AND EDUCATION OF SPLINTING OCCURED. DENIES NEEDS OR PAIN AT THIS TIME.
--- NOTE | 2019-12-29 10:01 | NUR ---
NUTRITION F/U PT REMAINS NPO EXCEPT FOR ICE CHIPS. WILL PROVIDE DIET WHEN ADVANCED AND MONITOR PO INTAKE. RD FOLLOWING
--- NOTE | 2019-12-29 13:13 | NUR ---
PT STATED PAIN IN ABDOMEN 11/23. ABDOMEN IS SLIGHTLY MORE DISTENDED THAN THIS AM; HOWEVER, PT STATES HE IS PASSING GAS. PAIN MEDICATION RECIEVED PER REQUEST. MORE ICE CHIPS GIVEN. WILL CONTINUE TO MONITOR.
--- NOTE | 2019-12-29 17:40 | NUR ---
SPOKE WITH DR. HODGE ABOUT RESTARTING ELIQUIS PER DR. SANTAMARIA, ORDER RECIEVED FOR LOPRESSOR IV. WILL CONTINUE TO MONITOR.
--- NOTE | 2019-12-29 19:45 | NUR ---
IN TO PT ROOM. ASSESSMENT COMPLETED. HEART SOUNDS WNL BUT IRREGULAR HEARTBEAT. HE IS IN ATRIL FIB. HE DOES NOT HAVE ANY PVC'S NOTED. SKIN WARM AND DRY. LUNGS SOUND CLEAR. NO EDEMA NOTED. PT IS ALERT AND ORIENTED. HE HAS O2 VIA NC. INCISION SITES LOOK GOOD. NO DRAINAGE NOTED. BACON CATHETER DRAINING WELL. UPPER ABD FEELS FIRM BUT LOWER ABD IS SOFT. PT IS DOZING ON AND OFF. I TOLD HIM HE NEEDED TO REST. HE KNOWS THAT WHEN HE IS ABLE TO GET UP THAT HE WILL NEED A LITTLE THERAPY TO HELP STRENGTHEN HIM.
--- NOTE | 2019-12-29 22:09 | NUR ---
PT C/O PAIN IN HIS ABD. PO MEDS GIVEN PER DR. BLAKE. HE RATES HIS PAIN A 5 AT THIS TIME. TAKING FLUIDS OK. NO N/V.
--- NOTE | 2019-12-29 23:00 | NUR ---
RESTING QUIETLY WITH EYES CLOSED.
[2019-12-30] VITALS (11 sets, daily range): BP systolic 121–160; BP diastolic 92–115
--- NOTE | 2019-12-30 00:15 | NUR ---
CONT TO REST WITH EYES CLOSED. RESPIRATIONS EVEN AND UNLABORED
--- NOTE | 2019-12-30 02:00 | NUR ---
PT IS VERY FRUSTRATED THAT HE CANNOT GET UP TO DO BASIC THINGS. HE ESPECIALLY JUST WANTED TO WASH HIS FACE AND BRUSH HIS TEETH. I TOOK A BASIN OF WARM WATER AND AND WASHED HIS FACE WELL AND GOT TOOTHBROOTH AND TOOTHPASTE AND LET HIM BRUSH HIS TEETH. HE STATES HE FEELS MUCH BETTER. I SUGGESTED THAT HE START TURNING FROM SIDE TO SIDE PAIN PERMITTED. I TOLD HIM THAT SINCE HE COULDN'T GET UP AND WALK THAT MAYBE TURNING WOULD HELP HIM FEEL BETTER AND GET RID OF SOME THE THE GAS HE FEELS HE HAS.
--- NOTE | 2019-12-30 02:05 | NUR ---
PT ASKED FOR PAIN MEDS. HIS BELLY IS HURTING TO THE TUNE OF A 6-7. OXY 5 GIVEN PO !!
[2019-12-30 04:53] LABS: CALC OSMOLALITY 278 mosm/kg (275-300); CALCIUM 8.5 mg/dL (8.5-10.1); CARBON DIOXIDE 19.2 mmol/L (21.0-32.0); CHLORIDE - SERUM 106 mmol/L (98-107); CREATININE - SERUM 0.7 mg/dL (0.6-1.3); GLUCOSE 137 mg/dL (74-106); SODIUM 139 mmol/L (136-145); UREA NITROGEN 11 mg/dL (7-18); eGFR NON AFRICAN AMERICAN > 90 mL/min (90-120)
--- NOTE | 2019-12-30 05:30 | NUR ---
BACON BAG EMPTIED. 500 STRONG TEA COLORED URINE OBTAINED. PT RESTING WITH A CLOTH OVER HIS HEAD.
--- NOTE | 2019-12-30 06:16 | NUR ---
PT HAD HIS SECOND INCONTINENT STOOL. DRAINAGE FROM HIS COLOSTOMY SITE WAS 130CC. STILL CANNOT UNDERSTAND A WORD PT IS SAYING.
--- NOTE | 2019-12-30 07:00 | NUR ---
BEDSIDE REPORT RECEIVED. SHIFT ASSESSMENT COMPLETED PER FLOWSHEET, SEE FLOWSHEET FOR INFORMATION. VSS. WILL CONT TO MONITOR.
--- NOTE | 2019-12-30 07:44 | NUR ---
PAGED AND . CALL RECEIVED FROM , PER CARDIOLOGY PT CAN TRANSFER
--- NOTE | 2019-12-30 09:00 | NUR ---
LOST ALL IV ACCESS. MANY NURSES TRIED TO GET AN IV, NONE SUCCESSFUL. PAGED . WILL CONT TO MONITOR.
--- NOTE | 2019-12-30 11:00 | NUR ---
PT GAVE HIMSELF CHG BATH. WILL CONT TO MONITOR.
--- NOTE | 2019-12-30 11:18 | NUR ---
AND PAGED MULTIPLE TIMES. WILL CONT TO MONITOR.
--- NOTE | 2019-12-30 12:22 | NUR ---
NOTIFIED OF NEED FOR CENTRAL LINE. HE STATED "JUST LET THEM KNOW IT'LL BE LATER." WILL CONT TO MONITOR.
--- NOTE | 2019-12-30 12:23 | NUR ---
PT UP TO CHAIR AND BEDSIDE BY HIMSELF. NO ACUTE NEEDS OR DISTRESS NOTED. ALSO, ORDERED PT TO TRANSFER TO [facility] 2. WILL CONT TO MONITOR.
--- NOTE | 2019-12-30 16:42 | NUR ---
DR YASHIRA REHMAN ON PT, ORDERED ABD 2 VIEW (FLAT AND UPRIGHT) FOR ABD DISTENTION AND C/O PAIN. ALSO ORDERED SIMETHICONE PRN.
--- NOTE | 2019-12-30 16:48 | NUR ---
NOTIFIED DR HODGE THAT WILL NOT HAVE IV ACCESS UNTIL TOMORROW MORNING. ORDER RECIEVED FOR AMIODARONE 200MG PO BID. WILL PLACE ORDERS.
--- NOTE | 2019-12-30 17:00 | NUR ---
AT BEDSIDE. HE STATED "I WILL NOT BE DOING THAT TODAY." SPEAKING OF THE CENTRAL FOR THE PT, PT HAS NO IV ACCESS. WILL CONT TO MONITOR.
--- NOTE | 2019-12-30 19:22 | NUR ---
PT RESTING IN BED WATCHING TV. HE REPORTS HIS PAIN IS A 2/10 TO HIS ABDOMEN AND HE REPORTS IT TOLERABLE. HE HAS A BACON DRAINING CLEAR, YELLOW URINE. VSS. HE DENIES NEEDS AT THIS TIME. BED IS LOW AND CALL LIGHT WITHIN REACH.
[2019-12-31 01:00] VITALS: BP 135/70
[2019-12-31 07:15] VITALS: BP 142/77
[2019-12-31 07:17] LABS: BASOPHILS 0.2 % (0-2); EOSINOPHILS 0.7 % (0-7); HEMATOCRIT 44.1 % (42.0-54.0); HEMOGLOBIN 14.7 g/dL (13.5-17.5); IMMATURE GRANULOCYTES 0.4 % (0-5); LYMPHOCYTES 8.5 % (15-50); MCH 30.3 pg (26.0-34.0); MCHC 33.3 g/dL (31.0-37.0); MCV 90.9 fL (80.0-100.0); MONOCYTES 8.1 % (2-11); NEUTROPHILS 82.1 % (40-80); PLATELET COUNT 249 10x3/uL (130-400); RBC 4.85 10x6/uL (4.20-6.10); RDW 14.8 % (11.5-14.5); WBC 13.2 10x3/uL (4.8-10.8)
[2019-12-31 07:26] LABS: ALBUMIN 2.8 g/dL (3.4-5.0); ALKALINE PHOSPHATASE 59 U/L (30-120); ALT (SGPT) 12 U/L (10-68); CALC OSMOLALITY 278 mosm/kg (275-300); CALCIUM 9.2 mg/dL (8.5-10.1); CARBON DIOXIDE 22.8 mmol/L (21.0-32.0); CHLORIDE - SERUM 105 mmol/L (98-107); CREATININE - SERUM 0.8 mg/dL (0.6-1.3); GLUCOSE 131 mg/dL (74-106); POTASSIUM - SERUM 3.7 mmol/L (3.5-5.1); PROTEIN - SERUM 6.6 g/dL (6.4-8.2); SODIUM 138 mmol/L (136-145); UREA NITROGEN 15 mg/dL (7-18); eGFR NON AFRICAN AMERICAN > 90 mL/min (90-120)
--- NOTE | 2019-12-31 09:00 | NUR ---
ALERT AND ORIENTED X4. ABDOMEN DISTENDED WITH HYPOACTIVE BOWEL SOUNDS X4. DRESSINGS INTACT TO ABDOMEN. TELEMETRY INTACT WITH IV STARTED TO RT. FOREARM WITH 20G X1 STICK. DR YASHIRA ANGULO RELAED TO ABDOMINAL PAIN WITH NEW ORDERS NOTED.
[2019-12-31 12:04] VITALS: BP 167/97
--- NOTE | 2019-12-31 14:08 | NUR ---
REPORT CALLED TO CHERYL MELO ON [facility]. TRANSFERED TO RM 2115 WITH IVF AND TERMINAL PRESS OPERATOR AT PRESCRIBED RATE. STABLE AT TIME OF TRANSFER.
--- NOTE | 2019-12-31 14:09 | NUR ---
RECEIVED REPORT FROM APRIL MELO.
[2019-12-31 14:23] VITALS: BP 142/64
--- NOTE | 2019-12-31 14:23 | NUR ---
RECEIVED PT TO ROOM 2114 VIA WHEELCHAIR. PT A/O X4, RESP EVEN BUT A LITTLE LABORED ON RA. ENCOURAGED PT TO TAKE DEEP BREATHS. ORIENTED PT TO ROOM AND CALL LIGHT. AMIODORONE DRIP STARTED AT THIS TIME AT 0.5MF/MIN TO RT WRIST IV. PT DENIES ANY NEEDS AT THIS TIME. CALL LIGHT IN REACH, BEDSIDE RAILS X1, SPOUSE AT BEDSIDE, WILL CONTINUE PLAN OF CARE.
[2019-12-31 20:45] VITALS: BP 120/62
[2020-01-01 01:40] VITALS: BP 134/65
--- NOTE | 2020-01-01 05:05 | NUR ---
PAGE TO DR BUCKNER TO REPORT SLOW INCREASE IN HEARTRATE TO PT NOW BEING 160'S AND SOMETIMES HIGHER AFIB RVR. STILL ON AMIODARONE DRIP AND ORAL AMIODARONE.
[2020-01-01 06:14] LABS: BASOPHILS 0.2 % (0-2); EOSINOPHILS 0.4 % (0-7); HEMATOCRIT 42.9 % (42.0-54.0); HEMOGLOBIN 14.2 g/dL (13.5-17.5); IMMATURE GRANULOCYTES 0.4 % (0-5); LYMPHOCYTES 12.7 % (15-50); MCH 30.1 pg (26.0-34.0); MCHC 33.1 g/dL (31.0-37.0); MCV 91.1 fL (80.0-100.0); NEUTROPHILS 75.3 % (40-80); PLATELET COUNT 205 10x3/uL (130-400); RBC 4.71 10x6/uL (4.20-6.10); RDW 15.2 % (11.5-14.5); WBC 10.5 10x3/uL (4.8-10.8)
[2020-01-01 06:54] LABS: ALBUMIN 2.6 g/dL (3.4-5.0); ALKALINE PHOSPHATASE 54 U/L (30-120); ALT (SGPT) 9 U/L (10-68); CALC OSMOLALITY 284 mosm/kg (275-300); CALCIUM 9.2 mg/dL (8.5-10.1); CARBON DIOXIDE 22.8 mmol/L (21.0-32.0); CHLORIDE - SERUM 107 mmol/L (98-107); GLUCOSE 171 mg/dL (74-106); MAGNESIUM - SERUM 1.7 mg/dL (1.8-2.4); PHOSPHOROUS 2.3 mg/dL (2.5-4.9); POTASSIUM - SERUM 3.5 mmol/L (3.5-5.1); PROTEIN - SERUM 6.6 g/dL (6.4-8.2); SODIUM 139 mmol/L (136-145); eGFR NON AFRICAN AMERICAN 80 mL/min (90-120)
[2020-01-01 06:55] LABS: UREA NITROGEN 21 mg/dL (7-18)
[2020-01-01 07:06] VITALS: BP 123/82
--- NOTE | 2020-01-01 08:05 | NUR ---
NOTIFIED DR. BUCKNER ABOUT PT'S HR RUNNING 130-180. NO NEW ORDERS AT THIS TIME.
[2020-01-01 11:00] VITALS: BP 124/94
--- NOTE | 2020-01-01 11:44 | EC ---
PATIENT:ROBERTA KILGORE JR DATE OF SERVICE: 12/27/19 SEX: M MEDICAL RECORD: [id number] DATE OF : [birth year] LOCATION:D.M2 D.211 AGE OF PATIENT: 64 ADMISSION DATE: 12/27/19 REFERRING PHYSICIAN: INTERPRETING PHYSICIAN: JARRETT BUCKNER MD ECHOCARDIOGRAM REPORT ECHO CHARGES 5 ECHO LIMITED Date: 12/28/19 CLINICAL DIAGNOSIS: AFIB ECHOCARDIOGRAPHIC MEASUREMENTS (adult normal given) AC root (d.<3.7cm) 0 cm LV Septum d (<1.2 cm> 0 cm Valve Excursion 0 cm LV Septum (systole) 0 cm Left Atria (s.<4.0cm> 0 cm LVPW d(<1.2cm) 0 cm RV (d.<2.3cm) 0 cm LVPW (sytole) 0 cm LV diastole(<5.6CM) 0 cm MV E-F(>70mm/sec) 0 cm LV systole 0 cm LVOT Diameter 0 cm MV exc.(>10mm) 0 cm Est.ejection fraction (50-75%) % DOPPLER: LVIT cm/sec A 0 cm/sec E 0 cm/sec LA 0 cm/sec RVSP 18.6 mmHg LVOT 0 cm/sec AOP1/2T m/s Asc. Ao 0 cm/sec RVOT 0 cm/sec RA 0 cm/sec PA 0 cm/sec AV Gradient Peak 0 mmHg AV Mean 0 mmHg AV Area 0 cm MV Gradient Peak 0 mmHg MV Mean 0 mmHg MV Area 0 cm COMMENTS: Sorter Pricer: Kelly [facility] Sports Coordinator: 3 Dr. Elliott TAPE# PACS Pericardial Effusion N DATE OF SERVICE: This is a limited study includes 2D, color flow imaging. Grossly, LVH appears present. LV internal dimensions are normal. Wall motion is normal. EF is greater than or equal to 55%. Aortic valve is tricuspid with adequate valve excursion and no significant aortic insufficiency. Left atrium appears grossly normal. Mitral valve appears grossly normal with trivial MR. Right-sided chambers are grossly normal. Trivial TR. ECHOCARDIOGRAM REPORT [id number] ROBERTA KILGORE JR TRANSINT:[id number] Voice Confirmation ID: [id number] DOCUMENT ID: [id number] JARRETT BUCKNER MD at 3214 CC: [id number] DICTATION DATE: 12/28/19 1534 ELECTRIC RANGE PREPARER: 12/28/19 1642 ADM IN [facility] [address] [id number]
--- NOTE | 2020-01-01 12:00 | NUR ---
MIDLINE TO LT UPPER ARM PLACED BY VASCULAR NURSE, VERBAL CONSENT GIVEN THAT MIDLINE CAN BE USED.
--- NOTE | 2020-01-01 14:23 | NUR ---
CALLED TAMI CUMMINS WITH CARDIOLOGY AND INFOMRED HER THAT PT'S HR KEEPS JUMPING UP TO 180-190. HAD NOT BEEEN ANY LOWER THAN 140. NEW ORDER FOR 150MG BOLUS OF AMIDORONE ONE TIME DOSE.
--- NOTE | 2020-01-01 14:35 | NUR ---
BOLUS OF AMIDORONE STARTED AT THIS TIME. VITALS SIGNS FOLLOW BP 145/82, HR 154, R 18, O2 93% 2L TRISH. TAMI CUMMINS WITH CARDIOLOGY AT BEDSIDE TO ASSESS PT. ENCOURAGED PT TO MOVE AROUND TO SEE IF HE PASSES ANY GAS. PT VERY UNCOMFORTABLE BECAUSE OF HIS ABD. DENIES ANY NEEDS AT THIS TIME, CALL LIGHT IN REACH, NAD NOTED, WILL CONTINUE TO MONITOR.
[2020-01-01 15:00] VITALS: BP 158/93
--- NOTE | 2020-01-01 16:52 | NUR ---
PER TAMI LOPEZ, IF HR IS GREATHER THAN 150 GIVE DIGOXIN 500MG IV X1 THEN 250MCGIV X1 FOUR HOURS AFTER.
--- NOTE | 2020-01-01 19:36 | NUR ---
RECEIVED BEDSIDE REPORT. ROUNDING COMPLETE. PATIENT IS ALERT AND ORIENTED, RESTING IN BED. RESPIRATIONS ARE EVEN AND UNLABORED. NO S/S OF DISTRESS. NO C/O PAIN. DENIES NEEDS AT THIS TIME. AT BEDSIDE. CALL LIGHT WITHIN REACH. WILL CPOC.
[2020-01-02] VITALS: BP 144/100
[2020-01-02 04:00] VITALS: BP 149/103
[2020-01-02 04:52] LABS: BASOPHILS 0.1 % (0-2); EOSINOPHILS 0.1 % (0-7); HEMOGLOBIN 14.7 g/dL (13.5-17.5); IMMATURE GRANULOCYTES 0.5 % (0-5); LYMPHOCYTES 6.2 % (15-50); MCH 29.8 pg (26.0-34.0); MCHC 32.7 g/dL (31.0-37.0); MCV 91.3 fL (80.0-100.0); MEAN PLATELET VOLUME 10.1 fL (7.4-10.4); NEUTROPHILS 84.1 % (40-80); RBC 4.93 10x6/uL (4.20-6.10); RDW 15.2 % (11.5-14.5); WBC 12.7 10x3/uL (4.8-10.8)
[2020-01-02 05:03] LABS: PLATELET COUNT 249 10x3/uL (130-400)
[2020-01-02 05:22] LABS: ALBUMIN 2.7 g/dL (3.4-5.0); ANION GAP 16.6 mmol/L (8-16); BILIRUBIN - TOTAL 0.57 mg/dL (0.2-1.3); CARBON DIOXIDE 22.9 mmol/L (21.0-32.0); CREATININE - SERUM 1.1 mg/dL (0.6-1.3); MAGNESIUM - SERUM 1.8 mg/dL (1.8-2.4); POTASSIUM - SERUM 3.5 mmol/L (3.5-5.1); PROTEIN - SERUM 7.3 g/dL (6.4-8.2)
[2020-01-02 08:00] VITALS: BP 158/103
--- NOTE | 2020-01-02 10:28 | NUR ---
BACON CATH DCD WITH 200CC BLOODY OP AND 10CC BULB. WILL MONITOR VOID.
--- NOTE | 2020-01-02 10:31 | NUR ---
TELEMETRY UCAF HR 125. PT WILL CHECK BACK LATER TO SEE IF HR IS MORE STABLE.
[2020-01-02 11:00] VITALS: BP 165/91
--- NOTE | 2020-01-02 12:36 | NUR ---
URINE SPECIMEN COLLECTED AND TAKEN TO LAB. OP RED.
[2020-01-02 13:03] LABS: RED CELLS - URINE >50 /hpf (0-5); WHITE CELLS - URINE 0-5 /hpf (NEGATIVE)
[2020-01-02 13:04] LABS: AMORPHOUS SEDIMENT >1+ /lpf (NONE SEEN); BACTERIA MODERATE /hpf (NEGATIVE); EPITHELIAL CELLS 0-5 /hpf (0-5)
--- NOTE | 2020-01-02 13:15 | NUR ---
Nutrition Follow-up: POD 6 HALS sigmoid colectomy. KUB shows ileus vs SBO; per chart, pt reports several BMs since XR this AM and requests clears. Diet: Clear Liquid No new wt; last wt: 243# (12/26) Labs noted: Glu 194, Alb 2.7 Meds noted: Reglan, Samsond, NS @ 125 -Rec ADAT as medically feasible; may consider nutrition support if unable to advance past clears within 24-48 hrs. -Need new wt. -RD following.
[2020-01-02 15:00] VITALS: BP 134/102
--- NOTE | 2020-01-02 20:19 | NUR ---
REPORT RECEIVED, WILL CONT POC. PT A&O, UP IN BED. NO S/S OF DISTRESS OBSERVED. RR EVEN AND UNLABORED ON ROOM AIR. PT DENIES NEEDS AT THIS TIME. ENCOURAGED PT TO WALK AND TURN ON SIDES. CALL LIGHT IN REACH, BED LOCKED AND LOWERED. WILL CONT TO MONITOR. ASSESSMENT COMPLETED AT THIS TIME.
[2020-01-02 22:30] VITALS: BP 156/105
[2020-01-03 00:30] VITALS: BP 171/101
--- NOTE | 2020-01-03 02:00 | NUR ---
PT HAD A WATERY BOWEL MOVEMENT. ASSISTED PT TO SHOWER AND BACK TO BED AFTERWARDS. PT RESTING IN BED, CALL LIGHT IN REACH.
[2020-01-03 04:30] VITALS: BP 149/93
[2020-01-03 06:46] LABS: ALBUMIN 2.8 g/dL (3.4-5.0); ANION GAP 12.3 mmol/L (8-16); BILIRUBIN - TOTAL 0.63 mg/dL (0.2-1.3); CARBON DIOXIDE 25.7 mmol/L (21.0-32.0); CREATININE - SERUM 1.1 mg/dL (0.6-1.3); MAGNESIUM - SERUM 1.8 mg/dL (1.8-2.4); PHOSPHOROUS 2.7 mg/dL (2.5-4.9); PROTEIN - SERUM 6.7 g/dL (6.4-8.2)
[2020-01-03 07:59] LABS: BASOPHILS 0.1 % (0-2); EOSINOPHILS 0.4 % (0-7); HEMATOCRIT 44.9 % (42.0-54.0); HEMOGLOBIN 14.8 g/dL (13.5-17.5); IMMATURE GRANULOCYTES 0.4 % (0-5); LYMPHOCYTES 7.7 % (15-50); MCV 90.9 fL (80.0-100.0); MEAN PLATELET VOLUME 10.1 fL (7.4-10.4); MONOCYTES 14.5 % (2-11); NEUTROPHILS 76.9 % (40-80); PLATELET COUNT 283 10x3/uL (130-400); RBC 4.94 10x6/uL (4.20-6.10); RDW 15.4 % (11.5-14.5)
[2020-01-03 08:00] LABS: WBC 7.1 10x3/uL (4.8-10.8)
[2020-01-03 08:46] VITALS: BP 125/81
[2020-01-03 11:59] VITALS: BP 127/87
[2020-01-03 17:08] VITALS: BP 144/90
--- NOTE | 2020-01-03 20:00 | NUR ---
REPORT RECEIVED, WILL CONT POC. PT A&O, USING BATHROOM. NO S/S OF DISTRESS OBSERVED. RR EVEN & UNLABORED ON ROOM AIR. REPORTS 2/10 PAIN. DATABASE COORDINATOR BUTTON AT BEDSIDE. PT DENIES NEEDS AT THIS TIME. CALL LIGHT IN REACH. BED LOCKED AND LOWERED. ASSESSMENT COMPLETED AT THIS TIME. WILL CONT TO MONITOR.
[2020-01-03 20:30] VITALS: BP 139/89
--- NOTE | 2020-01-04 00:22 | NUR ---
D/C CONT PULSE OX PER MINO BEE.
--- NOTE | 2020-01-04 02:59 | NUR ---
PTS CALLED AND STATED THAT A FRIEND TESTED POSITIVE FOR COVID AND SHE HAD RECENTLY HAD CONTACT WITH FRIEND. NOTIFIED MINO SEAMAN APN WHO ORDERED A CXR FOR 01/04/20 AM. NOTIFIED OFFICE EQUIPMENT MECHANIC WHO WILL CONTACT ADAMA HARTMANN IN THE MORNING FOR FURTHER INSTRUCTION. PT IS CURRENTLY ASYMPTOMATIC. NO NEW ONSET OF COUGH, AFEBRILE 97.4. WILL CONT TO MONITOR FOR NEW ONSET OF SYMPTOMS.
[2020-01-04 04:30] VITALS: BP 122/74
[2020-01-04 06:26] LABS: BASOPHILS 0.2 % (0-2); EOSINOPHILS 2.1 % (0-7); HEMATOCRIT 40.9 % (42.0-54.0); HEMOGLOBIN 13.1 g/dL (13.5-17.5); IMMATURE GRANULOCYTES 0.5 % (0-5); LYMPHOCYTES 14.1 % (15-50); MCH 29.2 pg (26.0-34.0); MCV 91.1 fL (80.0-100.0); MEAN PLATELET VOLUME 9.9 fL (7.4-10.4); MONOCYTES 14.7 % (2-11); NEUTROPHILS 68.4 % (40-80); PLATELET COUNT 221 10x3/uL (130-400); RBC 4.49 10x6/uL (4.20-6.10); RDW 15.4 % (11.5-14.5); WBC 6.5 10x3/uL (4.8-10.8)
[2020-01-04 06:53] LABS: ALBUMIN 2.4 g/dL (3.4-5.0); ALKALINE PHOSPHATASE 55 U/L (30-120); ALT (SGPT) 14 U/L (10-68); BILIRUBIN - TOTAL 0.36 mg/dL (0.2-1.3); CALC OSMOLALITY 303 mosm/kg (275-300); CALCIUM 8.7 mg/dL (8.5-10.1); CARBON DIOXIDE 23.7 mmol/L (21.0-32.0); CHLORIDE - SERUM 114 mmol/L (98-107); GLUCOSE 165 mg/dL (74-106); MAGNESIUM - SERUM 1.7 mg/dL (1.8-2.4); POTASSIUM - SERUM 3.1 mmol/L (3.5-5.1); PROTEIN - SERUM 5.3 g/dL (6.4-8.2); SODIUM 148 mmol/L (136-145); UREA NITROGEN 30 mg/dL (7-18); eGFR NON AFRICAN AMERICAN 80 mL/min (90-120)
--- NOTE | 2020-01-04 09:51 | NUR ---
Nutrition Follow-up: POD 8 HALS sigmoid colectomy. Diet has been advanced to regular soft. Pt reports tolerating solids this AM. Denies N/V. Pt states BM this AM was somewhat formed. Diet: Regular, Soft No new wt; last wt: 243# (12/26) Labs noted: Na 148, K+ 3.1, Glu 165, Mg 1.7, Alb 2.4 Meds noted: JAM Nina @ 75 -RD following.
[2020-01-04] MEDS ORDERED: AMIODARONE HCL200 MG PO (15:27)
[2020-01-04] MEDS ORDERED: TOPROL XL50 MG PO (15:27)
[2020-01-04] MEDS ORDERED: ELIQUIS5 MG PO (15:27)
[2020-01-04] MEDS ORDERED: LISINOPRIL10 MG PO (15:28)
[2020-01-04] MEDS ORDERED: CARDIZEM CD240 MG PO (15:28)
--- NOTE | 2020-01-04 16:55 | NUR ---
IV AND TELEMETRY DCD. DC PLANS GIVEN. UNDERSTANDING VOICED. ESCORTED TO CAR BY W/C.
== END 2020-01-04 16:56 | disposition home or self-care (01) | DRG 330 ==
LOC: D.SDCHOLD 12-27 06:07 → D.ICU 12-27 06:07 → D.M2 12-27 06:07 → D.SDCHOLD 12-27 08:00 → D.ICU 12-27 12:17 → D.MS 12-30 21:16 → D.M2 12-31 14:10
PROVIDERS: Anesthesiology; Family Medicine; ADMIT Surgery; ATTEND Surgery
PROC: 0DTJ0ZZ Resection of Appendix, Open Approach (ICD-10-PCS; 2019-12-27)
PROC: 0DTN0ZZ Resection of Sigmoid Colon, Open Approach (ICD-10-PCS; principal; 2019-12-27 08:00)
PROC: 05HY33Z Insertion of Infusion Device into Upper Vein, Percutaneous Approach (ICD-10-PCS; 2020-01-01)
DX: K63.1 Perforation of intestine (nontraumatic) (principal); N39.0 Urinary tract infection, site not specified; K56.7 Ileus, unspecified; K57.92 Diverticulitis of intestine, part unspecified, without perforation or abscess without bleeding; I48.91 Unspecified atrial fibrillation; I10 Essential (primary) hypertension; E78.5 Hyperlipidemia, unspecified; E11.9 Type 2 diabetes mellitus without complications; Z79.01 Long term (current) use of anticoagulants